=== PATIENT | male | born 1955 | race Caucasian/White ===

== ENCOUNTER 2017-02-03 16:32 | Emergency (ER) | payer BC, OTHER ==
[~2017-02-03] VITALS: Ht 188 cm; Wt 108.9 kg
[2017-02-03] MEDS ORDERED: FLUO20CA9 (16:45)
[2017-02-03] MEDS ORDERED: PANT40TA2 (16:45)
[2017-02-03] MEDS ORDERED: CIPR500T3 (16:45)
[2017-02-03] MEDS ORDERED: PROA1AER (16:45)
[2017-02-03] MEDS ORDERED: METR250T15 (16:45)
[2017-02-03] MEDS ORDERED: SIMV20TA2 (16:45)
[2017-02-03] MEDS ORDERED: MELO15TA4 (16:45)
[2017-02-03] MEDS ORDERED: NS 1,000 ML IV ONE (17:00)
[2017-02-03] MEDS ORDERED: KETOROLAC 30 MG/ML VIAL (J1885) IV ONE (17:00)
[2017-02-03 17:33] LABS: BASO % 0.5 % (0.0-1.0); EOS # 0.1 K/mm3 (0.0-0.50); EOS % 1.5 % (0.0-3.0); LARGE UNSTAINED CELL # 0.2 K/mm3 (0.0-0.4); LARGE UNSTAINED CELL % 2.7 % (0.0-4.0); LYMPH # 1.9 K/mm3 (1.5-4.5); LYMPH % 21.3 % (24.0-44.0); MEAN CORPUSCULAR HEMOGLOBIN 31.7 pg (27.0-33.0); MEAN CORPUSCULAR HGB CONC 33.6 g/dl (32.0-36.5); MEAN CORPUSCULAR VOLUME 94.4 fl (80.0-96.0); MONO # 0.5 K/mm3 (0.0-0.8); NEUTROPHILS # 5.9 K/mm3 (1.8-7.7); PLATELET COUNT, AUTOMATED 227 k/mm3 (150-450); WHITE BLOOD COUNT 8.7 K/mm3 (4.0-10.0)
[2017-02-03 17:53] LABS: ALBUMIN 3.7 GM/DL (3.2-5.2); ALBUMIN/GLOBULIN RATIO 1.12 (1.00-1.93); ALKALINE PHOSPHATASE 77 U/L (45-117); ALT/SGPT 40 U/L (12-78); ANION GAP 7 MEQ/L (8-16); AST/SGOT 24 U/L (15-37); BILIRUBIN,DIRECT < 0.1 MG/DL (0.0-0.2); BILIRUBIN,TOTAL 0.2 MG/DL (0.2-1.0); BLOOD UREA NITROGEN 16 MG/DL (7-18); CALCIUM LEVEL 8.4 MG/DL (8.8-10.2); CARBON DIOXIDE LEVEL 29 MEQ/L (21-32); CHLORIDE LEVEL 101 MEQ/L (98-107); CREATININE FOR GFR 1.14 MG/DL (0.70-1.30); GLOMERULAR FILTRATION RATE > 60.0 (>49); GLUCOSE, FASTING 93 MG/DL (80-110); POTASSIUM SERUM 4.5 MEQ/L (3.5-5.1); SODIUM LEVEL 137 MEQ/L (136-145)
[2017-02-03] MEDS ORDERED: ISOVUE-370 76% 100ML VIAL (Q9967) As Ordered ONE (18:10)
--- NOTE | 2017-02-03 18:40 | REPUSA ---
CT of the abdomen and pelvis with contrast Clinical statement: Pain. Technique: Multiple axial CT images were obtained from the base of the lungs through the floor of the pelvis utilizing 5 mm axial slices after administration of nonionic intravenous contrast. Coronal an d sagittal reconstructions were also obtained. No comparison is available. Findings: Chest: The visualized lung bases are clear. There is a moderate sized hiatal hernia. Abdomen: The liver, spleen, pancreas, kidneys, gallbladder, and adrenal glands are unremarkable. The aorta is within normal limits. There is no evidence of abdominal lymphadenopathy or ascites. Pelvis: There is bowel wall thickening and inflammation demonstrated around the sigmoid colon. A smal l pocket of extraluminal gas is noted, consistent with a small microperforation. There is no evidence of abscess. There is no evidence of bowel obstruction. The urinary bladder is within normal limits. The other pelvic structures appear grossly intact. There is no evidence of pelvic lymphadenopathy or ascites. Bones: There are no suspicious osseous abnormalities seen. Moderately severe multilevel degenerative disc disease is noted, most severe at L3/L4, L4/L5, and L5/S1. Significant disc osteophyte complexes appreciated at L5/S1. Impression: 1. Acute sigmoid diverticulitis. Extraluminal tiny pockets of gas are noted, consistent with a small microperforation. However, no free fluid or abscesses identified at this time. 2. Multilevel degenerative disc disease and spondylosis, most severe at L5/S1. 3. Moderate sized hiatal hernia.
[2017-02-03] MEDS ORDERED: metroNIDAZOLE (FLAGYL) 500 MG TAB PO ONE (18:45)
[2017-02-03] MEDS ORDERED: CIPR500T89 PO (18:57)
[2017-02-03] MEDS ORDERED: NORCOTAB PO (18:57)
[2017-02-03] MEDS ORDERED: FLAG500T PO (18:57)
[2017-02-03] MEDS ORDERED: CIPROFLOXACIN 400 MG in APPROPRIATE DILUENT 1 EA IV ONE (19:00)
[2017-02-03 19:56] VITALS: BP 132/78
[2017-02-03] MEDS ORDERED: NORCO, ANEXSIA 5/325MG TABLET (HYDROcodone/ACETAMINOPHEN) PO ONE (20:00)
== END 2017-02-03 20:11 | disposition home or self-care (01) ==
LOC: M ED 17:32
DX: K57.32 Diverticulitis of large intestine without perforation or abscess without bleeding (principal); K44.9 Diaphragmatic hernia without obstruction or gangrene; M43.06 Spondylolysis, lumbar region; M51.37 Other intervertebral disc degeneration, lumbosacral region; I25.10 Atherosclerotic heart disease of native coronary artery without angina pectoris; Z79.899 Other long term (current) drug therapy; Z88.1 Allergy status to other antibiotic agents
CPT/HCPCS: 36415; 74177; 80048; 80076; 81001; 83605; 83690; 85025; 96361; 96365; 96375; 99282; J0744; J1885; Q9967

== ENCOUNTER → 2017-02-18 | Outpatient (REF) | payer OTHER ==
[~2017-02-18] MED LIST: CIPR500T3; CIPR500T89 PO; FLAG500T PO; FLUO20CA9; MELO15TA4; METR250T15; NORCOTAB PO; PANT40TA2; PROA1AER; SIMV20TA2
[2017-02-18 13:04] LABS: ALBUMIN/GLOBULIN RATIO 1.03 (1.00-1.93); ALKALINE PHOSPHATASE 75 U/L (45-117); ALT/SGPT 39 U/L (12-78); ANION GAP 13 MEQ/L (8-16); AST/SGOT 21 U/L (15-37); BILIRUBIN,TOTAL 0.6 MG/DL (0.2-1.0); BLOOD UREA NITROGEN 22 MG/DL (7-18); CALCIUM LEVEL 9.6 MG/DL (8.8-10.2); CARBON DIOXIDE LEVEL 28 MEQ/L (21-32); CHLORIDE LEVEL 95 MEQ/L (98-107); CHOLESTEROL LEVEL 166 MG/DL (<200); CREATININE FOR GFR 1.23 MG/DL (0.70-1.30); GLOMERULAR FILTRATION RATE > 60.0 (>49); GLUCOSE, FASTING 99 MG/DL (80-110); POTASSIUM SERUM 4.6 MEQ/L (3.5-5.1); SODIUM LEVEL 136 MEQ/L (136-145); TOTAL PROTEIN 7.9 GM/DL (6.4-8.2); TRIGLYCERIDES LEVEL 85 MG/DL (<150)
== END ==
LOC: M LABDRWAD 12:25
PROVIDERS: ATTEND Emergency Medicine
DX: E78.2 Mixed hyperlipidemia (principal); I10 Essential (primary) hypertension; E55.9 Vitamin D deficiency, unspecified; N40.0 Benign prostatic hyperplasia without lower urinary tract symptoms; R73.01 Impaired fasting glucose
CPT/HCPCS: 80053; 80061; 82306; 83036; G0103

== ENCOUNTER 2017-03-16 08:11 | Inpatient (IN) | payer BC, OTHER ==
[2017-03-16] VITALS (7 sets, daily range): BP systolic 132–155; BP diastolic 87–97
[~2017-03-16] VITALS: Ht 188 cm; Wt 105.1 kg
[~2017-03-16 08:11] MED LIST changes: +ALKATAB PO; +CIPR500T3 PO; +FLUO20CA8 PO; +GLUC1CAP9 PO; +MELO15TA4 PO; +PANT40TA2 PO; +PROA1AER INH; +VITA500046 PO; +ZOCO20TA PO
[2017-03-16] MEDS ORDERED: ERTAPENEM SODIUM 1 GM in NS MINI-BAG PLUS 50 ML IV ONE (08:30)
[2017-03-16] MEDS ORDERED: LR 1,000 ML IV ONE (08:30)
[2017-03-16] MEDS ORDERED: BUPIVACAINE/EPIN 0.25% 30 ML VIAL As Ordered ONE (09:51)
[2017-03-16] MEDS ORDERED: PROPOFOL 200 MG/20 ML VIAL As Ordered ONE (09:54)
[2017-03-16] MEDS ORDERED: ONDANSETRON 4MG/2ML VIAL (J2405) As Ordered ONE ×2 (09:54→14:10)
[2017-03-16] MEDS ORDERED: ROCURONIUM BROMIDE 50 MG/5 ML VIAL As Ordered ONE (09:55)
[2017-03-16] MEDS ORDERED: LIDOCAINE 2% INJ 100 MG/5 ML SDV (FOR ANES.) As Ordered ONE (09:55)
[2017-03-16] MEDS ORDERED: dexameTHASONE 4 MG/ML 1ML VIAL (J1100) As Ordered ONE (09:55)
[2017-03-16] MEDS ORDERED: PHENYLephrine HCL 500 MCG/5 ML (100MCG/ML) SYRINGE (J2370) As Ordered ONE (10:16)
[2017-03-16] MEDS ORDERED: HYDROmorphone HCL 2 MG/ML 1ML VIAL (J1170) As Ordered ONE (11:35)
[2017-03-16] MEDS ORDERED: MIDAZOLAM INJ 2 MG/2 ML VIAL (J2250) As Ordered ONE (12:59)
[2017-03-16] MEDS ORDERED: fentaNYL 250 MCG/5 ML INJECTION (J3010) As Ordered ONE (12:59)
[2017-03-16] MEDS ORDERED: HYDROmorphone HCL 1 MG/ML SYRINGE (J1170) As Ordered ONE (14:14)
[2017-03-16] MEDS: HYDROmorphone HCL 1 MG/ML SYRINGE (J1170) IV PRN ×5 (14:17→14:46)
[2017-03-16] MEDS ORDERED: ACETAMINOPHEN TAB 650MG DOSE (2X325MG) PO PRN (14:30)
[2017-03-16] MEDS ORDERED: ALBUTEROL 90 MCG/ACT 8GM HFA INHALER INH PRN (14:30)
[2017-03-16] MEDS ORDERED: LR 1,000 ML IV SCH (14:30)
[2017-03-16] MEDS ORDERED: ONDANSETRON 4MG/2ML VIAL (J2405) IV PRN (14:30)
[2017-03-16] MEDS: fentaNYL 100 MCG/2 ML INJECTION (J3010) IV PRN ×4 (14:52→15:19)
[2017-03-16] MEDS: KETOROLAC 30 MG/ML VIAL (J1885) IV PRN ×2 (15:35→21:59)
[2017-03-16] MEDS: SIMVASTATIN 20 MG TAB PO SCH (17:45)
[2017-03-16] MEDS: FLUoxetine 20 MG CAP PO SCH (17:45)
[2017-03-16] MEDS: LR 1,000 ML IV SCH ×2 (17:45→21:26)
[2017-03-16] MEDS: MORPHINE 2 MG/ML 1ML SYRINGE IV PRN ×2 (17:47→19:55)
[2017-03-16] MEDS: HEPARIN SOD (PORCINE) 5000 UNITS/ML VIAL SC SCH (21:27)
[2017-03-16] MEDS: PANTOPRAZOLE 40MG INJ (PROTONIX) (C9113) IV SCH (21:27)
[2017-03-16] MEDS: SENOKOT S TAB PO SCH (21:28)
[2017-03-16] MEDS: NORCO, ANEXSIA 5/325MG TABLET (HYDROcodone/ACETAMINOPHEN) PO PRN (21:28)
[2017-03-17 02:00] VITALS: BP 136/88
[2017-03-17] MEDS: KETOROLAC 30 MG/ML VIAL (J1885) IV PRN ×3 (05:14→18:08)
[2017-03-17] MEDS: HEPARIN SOD (PORCINE) 5000 UNITS/ML VIAL SC SCH ×3 (05:14→21:03)
[2017-03-17] MEDS: LR 1,000 ML IV SCH ×3 (05:14→23:27)
[2017-03-17 06:00] VITALS: BP 122/82
--- NOTE | 2017-03-17 06:12 | RO ---
DATE OF PROCEDURE: 03/16/2017 PREOPERATIVE DIAGNOSIS: Sigmoid diverticulitis. POSTOPERATIVE DIAGNOSIS: Sigmoid diverticulitis. PROCEDURE: Laparoscopic sigmoidectomy. SURGEON: Dr. Brooks Dove. REPORTING COORDINATOR: Dr. Steward. ESTIMATED BLOOD LOSS: 150. ANESTHESIA: General. COMPLICATIONS: None. INDICATIONS FOR PROCEDURE: The patient is a 61-year-old male who has had four episodes of diverticulitis over the past 6 months. Last episode having microperforation but previous episodes were not confirmed with CT scan, but he has had multiple issues with urinary retention during each of these episodes. He was given the option for elective surgery and he agreed. Risks and benefits of procedure not limited but including bleeding, infection, hernia formation, damage to surrounding structures, anastomotic leak, and need for further surgery were discussed in detail with the patient. Informed consent was obtained and procedure was planned. PROCEDURE: The patient was brought back to operating room seven after sufficient sedation. NG tube was placed. A Ortiz catheter was placed. He was placed in supine position with legs up in stirrups. Next the perineal area was prepped and draped with Betadine and the abdomen was prepped with chlorhexidine. Time-out was then done to confirm proper patient and proper procedure. Following that a 5 mm incision made in the left upper quadrant. Veress needle was inserted and the abdomen was insufflated with 15 mmHg. Next a Veress needle was removed. 5 mm OptiView port was used to gain access to the abdomen. Once the abdomen was entered, the sigmoid colon was adhered to the anterior abdominal wall just inferior to the umbilicus extending down inferiorly adhered to the bladder and then going down into the pelvis. It was also adhered in the left lower quadrant against the lateral pelvic wall and this portion was just overlying the ureter which was visible on entry. Next, another 5 mm port was placed in the midline. Two more 5 mm ports, one in the left lateral wall and one in the right lower quadrant. The sigmoid was elevated up in the air. Mesocolon was taken down using the Enseal then the adhesions to the abdominal wall were carefully teased away and carefully taken down without getting in the entry into the bladder. There was a large abscess cavity that was identified in this area that was all aspirated out. The adhesions were then taken down along the left lower quadrant. Once the sigmoid was mobilized, then we were able to continue going through the sigmoid mesentery until we could reach completely across into the left lower side. Once this was completed, the rest of the mesentery was taken down up towards the rectosigmoid junction. Then the [place] stapler with a green load was used with three separate sachin to transect the distal colon at the rectosigmoid junction. The rest of the mesentery was taken down using the Enseal proximally until the mid descending colon was reached. The lateral attachments at the peritoneal reflection were all taken down with the Enseal as well. Once we had complete mobilization, the midline port site was extended about 6 cm just around the umbilicus. Incision was carried down to the fascia using electrocautery. The abdomen was entered. The colon was brought out through the abdominal wall incision. Once it was brought out, there was a soft area proximal to the wall of the diverticuli where the bowel seemed very strong and healthy. The bowel was transected at this point and the specimen was sent off. #2-0 Prolene suture was then used to place a pursestring and a 29 EEA stapler was placed inside the end and tied in place. Once this was completed, a little bit of cautery and scissors were used to dissect around the anvil to make sure that the staple line was going to be free from any surrounding mesenteric fat. Once this was completed, this was placed back inside the abdomen. Running PDS Endoloop was used to reapproximate the fascia. The abdomen was then reinsufflated. The EEA 29 stapler was then passed in through the rectum. The anvil was brought out connected intraperitoneally using a laparoscope and the stapler was fired. Upon firing, there were two donuts that were intact. No signs of any injury or holes in the staple line from that point. The rectum was then insufflated with air and saline was placed inside the pelvis. There were no bubbles that were identified. The saline was then aspirated out. A #19-Brune[place] Anthony drain was placed overlying the anastomosis and in the pelvis. The anastomosis was reinforced with a layer of Tisseel. The 12 mm port in the right lower quadrant that was used to staple the distal colon was closed with #0 Vicryl suture and a Kaleb-Patiño needle. Abdomen was then desufflated. The drain was tied in place with a #2-0 silk suture. The rest of the port sites and the midline incision were closed with sachin. The abdomen was cleaned and dried, 4x4 and tape were applied thus ending procedure.
[2017-03-17 06:22] LABS: MEAN CORPUSCULAR HEMOGLOBIN 31.7 pg (27.0-33.0); MEAN CORPUSCULAR HGB CONC 34.2 g/dl (32.0-36.5); MEAN CORPUSCULAR VOLUME 92.6 fl (80.0-96.0); RED CELL DISTRIBUTION WIDTH 12.3 % (11.5-14.5); WHITE BLOOD COUNT 9.9 K/mm3 (4.0-10.0)
[2017-03-17 06:47] LABS: ALBUMIN 2.7 GM/DL (3.2-5.2); ALBUMIN/GLOBULIN RATIO 0.73 (1.00-1.93); ALKALINE PHOSPHATASE 56 U/L (45-117); ALT/SGPT 21 U/L (12-78); ANION GAP 8 MEQ/L (8-16); AST/SGOT 12 U/L (15-37); BILIRUBIN,TOTAL 0.8 MG/DL (0.2-1.0); BLOOD UREA NITROGEN 15 MG/DL (7-18); CALCIUM LEVEL 8.7 MG/DL (8.8-10.2); CARBON DIOXIDE LEVEL 29 MEQ/L (21-32); CHLORIDE LEVEL 99 MEQ/L (98-107); CREATININE FOR GFR 1.02 MG/DL (0.70-1.30); GLOMERULAR FILTRATION RATE > 60.0 (>49); GLUCOSE, FASTING 104 MG/DL (80-110); MAGNESIUM LEVEL 1.8 MG/DL (1.8-2.4); POTASSIUM SERUM 4.5 MEQ/L (3.5-5.1); SODIUM LEVEL 136 MEQ/L (136-145); TOTAL PROTEIN 6.4 GM/DL (6.4-8.2)
[2017-03-17] MEDS: SIMVASTATIN 20 MG TAB PO SCH (08:07)
[2017-03-17] MEDS: PANTOPRAZOLE 40MG INJ (PROTONIX) (C9113) IV SCH ×2 (08:07→21:04)
[2017-03-17] MEDS: SENOKOT S TAB PO SCH ×2 (08:07→21:03)
[2017-03-17] MEDS: FLUoxetine 20 MG CAP PO SCH (08:08)
[2017-03-17] MEDS: NORCO, ANEXSIA 5/325MG TABLET (HYDROcodone/ACETAMINOPHEN) PO PRN ×3 (08:08→21:04)
[2017-03-17 10:00] VITALS: BP 112/77
[2017-03-17] MEDS: ERTAPENEM SODIUM 1 GM in NS MINI-BAG PLUS 50 ML IV SCH (10:15)
[2017-03-17 14:00] VITALS: BP 129/78
[2017-03-17 18:00] VITALS: BP 121/76
[2017-03-17 22:00] VITALS: BP 128/76
[2017-03-18] MEDS: KETOROLAC 30 MG/ML VIAL (J1885) IV PRN ×4 (01:08→23:36)
[2017-03-18] MEDS: HEPARIN SOD (PORCINE) 5000 UNITS/ML VIAL SC SCH ×3 (05:18→20:17)
[2017-03-18] MEDS: NORCO, ANEXSIA 5/325MG TABLET (HYDROcodone/ACETAMINOPHEN) PO PRN ×3 (05:18→20:16)
[2017-03-18 06:00] VITALS: BP 140/81
[2017-03-18] MEDS: LR 1,000 ML IV SCH (06:17)
[2017-03-18 06:39] LABS: MEAN CORPUSCULAR HEMOGLOBIN 31.9 pg (27.0-33.0); MEAN CORPUSCULAR HGB CONC 34.2 g/dl (32.0-36.5); MEAN CORPUSCULAR VOLUME 93.4 fl (80.0-96.0); RED CELL DISTRIBUTION WIDTH 12.4 % (11.5-14.5)
[2017-03-18 06:56] LABS: ALBUMIN 2.6 GM/DL (3.2-5.2); ALBUMIN/GLOBULIN RATIO 0.76 (1.00-1.93); ALKALINE PHOSPHATASE 49 U/L (45-117); ALT/SGPT 15 U/L (12-78); ANION GAP 5 MEQ/L (8-16); AST/SGOT 12 U/L (15-37); BILIRUBIN,TOTAL 0.6 MG/DL (0.2-1.0); BLOOD UREA NITROGEN 10 MG/DL (7-18); CALCIUM LEVEL 8.1 MG/DL (8.8-10.2); CARBON DIOXIDE LEVEL 28 MEQ/L (21-32); CHLORIDE LEVEL 100 MEQ/L (98-107); CREATININE FOR GFR 0.91 MG/DL (0.70-1.30); GLOMERULAR FILTRATION RATE > 60.0 (>49); GLUCOSE, FASTING 95 MG/DL (80-110); MAGNESIUM LEVEL 1.5 MG/DL (1.8-2.4); POTASSIUM SERUM 3.8 MEQ/L (3.5-5.1); SODIUM LEVEL 133 MEQ/L (136-145)
[2017-03-18] MEDS: DICYCLOMINE 10 MG CAP PO SCH ×3 (08:20→20:17)
[2017-03-18] MEDS: MAG SULF 1GM/100ML (MAG RUN) 1 GM in APPROPRIATE DILUENT 1 EA IV SCH ×3 (08:20→11:31)
[2017-03-18] MEDS: PANTOPRAZOLE 40MG INJ (PROTONIX) (C9113) IV SCH ×2 (08:20→20:17)
[2017-03-18] MEDS: FLUoxetine 20 MG CAP PO SCH (08:20)
[2017-03-18] MEDS: SENOKOT S TAB PO SCH ×2 (08:20→20:16)
[2017-03-18] MEDS: SIMVASTATIN 20 MG TAB PO SCH (08:20)
[2017-03-18] MEDS: ERTAPENEM SODIUM 1 GM in NS MINI-BAG PLUS 50 ML IV SCH (10:49)
[2017-03-18 14:00] VITALS: BP 133/78
[2017-03-18 21:05] VITALS: BP 141/84
[2017-03-19] MEDS: HEPARIN SOD (PORCINE) 5000 UNITS/ML VIAL SC SCH ×3 (04:58→20:57)
[2017-03-19] MEDS: NORCO, ANEXSIA 5/325MG TABLET (HYDROcodone/ACETAMINOPHEN) PO PRN ×2 (04:58→13:59)
[2017-03-19 05:05] VITALS: BP 155/86
[2017-03-19 06:43] LABS: MEAN CORPUSCULAR HEMOGLOBIN 31.5 pg (27.0-33.0); MEAN CORPUSCULAR HGB CONC 34.4 g/dl (32.0-36.5); MEAN CORPUSCULAR VOLUME 91.6 fl (80.0-96.0); RED CELL DISTRIBUTION WIDTH 11.9 % (11.5-14.5); WHITE BLOOD COUNT 7.8 K/mm3 (4.0-10.0)
[2017-03-19 07:24] LABS: ALBUMIN 2.4 GM/DL (3.2-5.2); ALBUMIN/GLOBULIN RATIO 0.67 (1.00-1.93); ALKALINE PHOSPHATASE 53 U/L (45-117); ALT/SGPT 15 U/L (12-78); ANION GAP 6 MEQ/L (8-16); AST/SGOT 12 U/L (15-37); BILIRUBIN,TOTAL 0.5 MG/DL (0.2-1.0); BLOOD UREA NITROGEN 6 MG/DL (7-18); CALCIUM LEVEL 8.4 MG/DL (8.8-10.2); CARBON DIOXIDE LEVEL 29 MEQ/L (21-32); CHLORIDE LEVEL 101 MEQ/L (98-107); GLOMERULAR FILTRATION RATE > 60.0 (>49); GLUCOSE, FASTING 87 MG/DL (80-110); MAGNESIUM LEVEL 1.6 MG/DL (1.8-2.4); POTASSIUM SERUM 3.5 MEQ/L (3.5-5.1); SODIUM LEVEL 136 MEQ/L (136-145)
[2017-03-19] MEDS: MAG SULF 1GM/100ML (MAG RUN) 1 GM in APPROPRIATE DILUENT 1 EA IV SCH ×3 (07:52→10:15)
[2017-03-19] MEDS: PANTOPRAZOLE 40MG INJ (PROTONIX) (C9113) IV SCH ×2 (08:51→20:57)
[2017-03-19] MEDS: SIMVASTATIN 20 MG TAB PO SCH (08:52)
[2017-03-19] MEDS: DICYCLOMINE 10 MG CAP PO SCH ×3 (08:52→20:57)
[2017-03-19] MEDS: SENOKOT S TAB PO SCH ×2 (08:52→20:57)
[2017-03-19] MEDS: POTASSIUM CHLORIDE 10 MEQ SR TABLET PO SCH ×2 (08:52→20:57)
[2017-03-19] MEDS: FLUoxetine 20 MG CAP PO SCH (08:52)
[2017-03-19] MEDS: KETOROLAC 30 MG/ML VIAL (J1885) IV PRN ×2 (08:58→18:51)
[2017-03-19 14:00] VITALS: BP 140/83
[2017-03-19 21:05] VITALS: BP 150/88
[2017-03-20] MEDS: KETOROLAC 30 MG/ML VIAL (J1885) IV PRN (01:41)
[2017-03-20] MEDS: HEPARIN SOD (PORCINE) 5000 UNITS/ML VIAL SC SCH ×3 (05:29→22:24)
[2017-03-20 05:35] VITALS: BP 154/94
[2017-03-20 06:47] LABS: ALBUMIN 2.6 GM/DL (3.2-5.2); ALBUMIN/GLOBULIN RATIO 0.67 (1.00-1.93); ALKALINE PHOSPHATASE 56 U/L (45-117); ALT/SGPT 15 U/L (12-78); ANION GAP 5 MEQ/L (8-16); AST/SGOT 14 U/L (15-37); BILIRUBIN,TOTAL 0.4 MG/DL (0.2-1.0); BLOOD UREA NITROGEN 6 MG/DL (7-18); CALCIUM LEVEL 8.4 MG/DL (8.8-10.2); CARBON DIOXIDE LEVEL 29 MEQ/L (21-32); CHLORIDE LEVEL 100 MEQ/L (98-107); CREATININE FOR GFR 0.86 MG/DL (0.70-1.30); GLOMERULAR FILTRATION RATE > 60.0 (>49); GLUCOSE, FASTING 90 MG/DL (80-110); MAGNESIUM LEVEL 2.1 MG/DL (1.8-2.4); SODIUM LEVEL 134 MEQ/L (136-145); TOTAL PROTEIN 6.5 GM/DL (6.4-8.2)
[2017-03-20 06:56] LABS: MEAN CORPUSCULAR HGB CONC 34.6 g/dl (32.0-36.5); MEAN CORPUSCULAR VOLUME 92.5 fl (80.0-96.0); RED CELL DISTRIBUTION WIDTH 11.9 % (11.5-14.5); WHITE BLOOD COUNT 7.8 K/mm3 (4.0-10.0)
[2017-03-20] MEDS ORDERED: NORCOTAB PO (08:04)
[2017-03-20] MEDS ORDERED: SENN1TAB2 PO (08:04)
[2017-03-20] MEDS: SIMVASTATIN 20 MG TAB PO SCH (09:37)
[2017-03-20] MEDS: SENOKOT S TAB PO SCH ×2 (09:37→22:22)
[2017-03-20] MEDS: HYDROCORTISONE 1% CREAM 30 GM TOP PRN ×3 (09:37→22:25)
[2017-03-20] MEDS: FLUoxetine 20 MG CAP PO SCH (09:37)
[2017-03-20] MEDS: POTASSIUM CHLORIDE 10 MEQ SR TABLET PO SCH ×2 (09:37→22:23)
[2017-03-20] MEDS: PANTOPRAZOLE 40MG INJ (PROTONIX) (C9113) IV SCH (09:38)
[2017-03-20] MEDS: DICYCLOMINE 10 MG CAP PO SCH ×3 (09:38→22:23)
[2017-03-20] MEDS: NORCO, ANEXSIA 5/325MG TABLET (HYDROcodone/ACETAMINOPHEN) PO PRN ×3 (09:38→22:24)
[2017-03-20 14:00] VITALS: BP 142/70
[2017-03-20] MEDS: PANTOPRAZOLE 40MG TAB (PROTONIX) PO SCH (21:00)
[2017-03-20 21:40] VITALS: BP 158/77
[2017-03-21] MEDS: NORCO, ANEXSIA 5/325MG TABLET (HYDROcodone/ACETAMINOPHEN) PO PRN (05:18)
[2017-03-21] MEDS: HEPARIN SOD (PORCINE) 5000 UNITS/ML VIAL SC SCH (05:18)
[2017-03-21 05:32] VITALS: BP 142/89
[2017-03-21 05:49] LABS: MEAN CORPUSCULAR HEMOGLOBIN 31.7 pg (27.0-33.0); MEAN CORPUSCULAR HGB CONC 34.2 g/dl (32.0-36.5); MEAN CORPUSCULAR VOLUME 92.7 fl (80.0-96.0); RED CELL DISTRIBUTION WIDTH 12.3 % (11.5-14.5); WHITE BLOOD COUNT 7.9 K/mm3 (4.0-10.0)
[2017-03-21 06:03] LABS: ALBUMIN 2.6 GM/DL (3.2-5.2); ALBUMIN/GLOBULIN RATIO 0.67 (1.00-1.93); ALKALINE PHOSPHATASE 73 U/L (45-117); ALT/SGPT 40 U/L (12-78); ANION GAP 6 MEQ/L (8-16); AST/SGOT 37 U/L (15-37); BILIRUBIN,TOTAL 0.3 MG/DL (0.2-1.0); BLOOD UREA NITROGEN 6 MG/DL (7-18); CALCIUM LEVEL 8.7 MG/DL (8.8-10.2); CARBON DIOXIDE LEVEL 28 MEQ/L (21-32); CHLORIDE LEVEL 101 MEQ/L (98-107); CREATININE FOR GFR 0.92 MG/DL (0.70-1.30); GLOMERULAR FILTRATION RATE > 60.0 (>49); GLUCOSE, FASTING 91 MG/DL (80-110); MAGNESIUM LEVEL 1.8 MG/DL (1.8-2.4); POTASSIUM SERUM 4.3 MEQ/L (3.5-5.1); SODIUM LEVEL 135 MEQ/L (136-145); TOTAL PROTEIN 6.5 GM/DL (6.4-8.2)
--- NOTE | 2017-03-21 09:42 | IPNPDOC ---
Subjective General Date/Time Seen The patient was seen on 03/21/17 at 09:40. Subject Chief Complaint/History The patient is a 61-year-old male admitted with a reason for visit of Diverticulitis. POD5 Reversal of colostomy Reports doing well. On regular diet, fair appetite, no nausea. Having multiple bms, soft. Current Medications Current Medications Current Medications Acetaminophen (Tylenol Tab) 650 mg Q4HP PRN PO MILD PAIN or TEMP > 101; Start 03/16/17 at 14:30; Stop 04/15/17 at 14:29 Acetaminophen/ Hydrocodone Bitart (Benedict, Anexsia 5/325) 2 tab Q6HP PRN PO SEVERE PAIN (PS 8-10) Last administered on 03/21/17 05:18; Start 03/16/17 at 14 :30; Stop 03/23/17 at 14:29 Albuterol Sulfate (Proventil, Ventolin Hfa) 2 puff Q4H PRN INH SOB/WHEEZING; Start 03/16/17 at 14:30; Stop 04/15/17 at 14:29 Dicyclomine HCl (Bentyl) 10 mg TID PO Last administered on 03/20/17 22:23; Start 03/18/17 at 09:00; Stop 04/17/17 at 08:59 Ertapenem 1 gm/ Sodium Chloride 50 ml @ 100 mls/hr Q24H IV Last administered on 03/18/17 10:49; Start 03/17/17 at 10:00; Stop 03/19/17 at 07:31; Status DC Fentanyl Citrate (Sublimaze) 25 mcg Q5MP PRN IV MODERATE PAIN (PS 4-7) Last administered on 03/16/17 15:19; Start 03/16/17 at 14:30; Stop 03/16/17 at 15:30 ; Status DC Fluoxetine HCl (PROzac) 20 mg DAILY PO Last administered on 03/20/17 09:37; Start 03/16/17 at 09:00; Stop 04/15/17 at 08:59 Heparin Sodium (Porcine) (Heparin) 5,000 units Q8H SC Last administered on 03/21 05:18; Start 03/16/17 at 22:00; Stop 03/21/17 at 21:59 Hydrocortisone (Hydrocortisone 1% Cream) 1 dose Q4HP PRN TOP ITCHING Last administered on 03/20/17 22:25; Start 03/20/17 at 08:00; Stop 04/19/17 at 07:59 Hydromorphone HCl (Dilaudid) 0.2 mg Q5MP PRN IV MODERATE/SEVERE PAIN (PS 7-10) Last administered on 03/16/17 14:46; Start 03/16/17 at 14:30; Stop 03/16/17 at 15:30; Status DC Ketorolac Tromethamine (ToRADol) 30 mg Q6HP PRN IV MILD/MODERATE PAIN (PS 1-7) Last administered on 03/20/17 01:41; Start 03/16/17 at 14:30; Stop 03/20/17 at 07:59; Status DC Lactated Ringer's 1,000 ml @ 100 mls/hr Q10H IV ; Start 03/16/17 at 14:30; Stop 03/16/17 at 15:30; Status DC Lactated Ringer's 1,000 ml @ 125 mls/hr Q8H IV Last administered on 03/18/17 06:17; Start 03/16/17 at 08:30; Stop 03/18/17 at 07:24; Status DC Magnesium Sulfate/ Dextrose 1 gm/IV Miscellaneous Supplies 100 ml @ 100 mls/hr Q1H IV Last administered on 03/18/17 11:31; Start 03/18/17 at 08:00; Stop at 10:59; Status DC Magnesium Sulfate/ Dextrose 1 gm/IV Miscellaneous Supplies 100 ml @ 100 mls/hr Q1H IV Last administered on 03/19/17 10:15; Start 03/19/17 at 07:30; Stop at 10:21; Status DC Morphine Sulfate (Morphine Sulfate Inj) 2 mg Q2HP PRN IV SEVERE PAIN (PS 8-10) Last administered on 03/16/17 19:55; Start 03/16/17 at 14:30; Stop 03/19/17 at 07:29; Status DC Ondansetron HCl (ZOFRAN INJection) 4 mg Q4HP PRN IV NAUSEA OR VOMITING Last administered on 03/16/17 14:11; Start 03/16/17 at 14:30; Stop 03/16/17 at 15:30 ; Status DC Pantoprazole Sodium (Protonix) 40 mg BID IV Last administered on 03/20/17 09: 38; Start 03/16/17 at 21:00; Stop 03/20/17 at 10:27; Status DC Pantoprazole Sodium (Protonix) 40 mg BID PO Last administered on 03/20/17 21: 00; Start 03/20/17 at 21:00; Stop 04/19/17 at 20:59 Potassium Chloride (Micro-K Extencaps) 40 meq BID PO Last administered on 22:23; Start 03/19/17 at 09:00; Stop 04/18/17 at 08:59 Senna/Docusate Sodium (Senokot S) 1 tab BID PO Last administered on 03/20/17 22:22; Start 03/16/17 at 21:00; Stop 04/15/17 at 20:59 Simvastatin (Zocor) 20 mg DAILY PO Last administered on 03/20/17 09:37; Start 03/16/17 at 09:00; Stop 04/15/17 at 08:59 Allergies Coded Allergies: Amoxicillin (Verified Allergy, Unknown, 03/16/17) Latex (Verified Adverse Reaction, Intermediate, rash, 03/16/17) Lactose Intolerance (GI) (Verified Adverse Reaction, Unknown, diarrhea, nausea, 03/16/17) Objective Physical Examination Examination GENERAL APPEARANCE:Patient seen, laying in bed, awake, alert, and oriented. Comfortable, in no acute distress. SKIN: Warm and moist. HEENT: Normocephalic, atraumatic. [place] palpebral conjunctiva, anicteric sclerae. Lips and mucosa appear moist. NECK: Supple, no thyromegaly. No obvious jugular venous distention. LUNGS: Clear to auscultation bilaterally. No wheezing appreciated. HEART: No chest wall abnormalities. Regular rate and rhythm with no murmurs appreciated. ABDOMEN: Abdomen is mild round, soft, nondistended. incisions sites, sachin intact, clean, dry. nontender on palpation. . EXTREMITIES: Extremities have no deformities. No edema identified. Vital Signs Vital Signs Date Time Temp Pulse Resp B/P (MAP) Pulse Ox O2 Delivery O2 Flow Rate FiO2 03/21/17 05:48 16 03/21/17 05:32 97.3 64 142/89 (106) 97 Room Air 03/17/17 10:00 2.0 I&Os I&O- Last 24 Hours up to 6 AM 03/21/17 06:00 Intake Total 1900 ml Output Total 1550 ml Balance 350 ml Laboratory Data Labs 24H Laboratory Tests 2 03/21/17 05:19: Anion Gap 6L, Glomerular Filtration Rate > 60.0, Blood Urea Nitrogen 6L, Creatinine 0.92, Sodium Level 135L, Potassium Level 4.3, Chloride Level 101, Carbon Dioxide Level 28, Calcium Level 8.7L, Aspartate Amino Transf (AST/SGOT) 37, Alanine Aminotransferase (ALT/SGPT) 40, Alkaline Phosphatase 73, Total Bilirubin 0.3, Total Protein 6.5, Albumin 2.6L, Magnesium Level 1.8, Albumin/ Globulin Ratio 0.67L CBC/BMP Laboratory Tests 03/21/17 05:19 Red Blood Count 3.55 L, Mean Corpuscular Volume 92.7, Mean Corpuscular Hemoglobin 31.7, Mean Corpuscular Hemoglobin Concent 34.2, Red Cell Distribution Width 12.3, Calcium Level 8.7 L, Aspartate Amino Transf (AST/SGOT) 37, Alanine Aminotransferase (ALT/SGPT) 40, Alkaline Phosphatase 73, Total Bilirubin 0.3, Total Protein 6.5, Albumin 2.6 L Impression POD 5 Reversal of Colostomy doing well Stable for discharge. Follow up with Dr. Dove Plan / VTE VTE Prophylaxis Ordered?: Yes Plan / Urinary Catheter Reason for insertion/continuin: Perioperative ZACH NASCIMENTO MD Mar 21, 2017 09:42
[2017-03-21] MEDS: HYDROCORTISONE 1% CREAM 30 GM TOP PRN (09:57)
[2017-03-21] MEDS: SENOKOT S TAB PO SCH (09:58)
[2017-03-21] MEDS: DICYCLOMINE 10 MG CAP PO SCH (09:58)
[2017-03-21] MEDS: POTASSIUM CHLORIDE 10 MEQ SR TABLET PO SCH (09:58)
[2017-03-21] MEDS: PANTOPRAZOLE 40MG TAB (PROTONIX) PO SCH (09:58)
[2017-03-21] MEDS: FLUoxetine 20 MG CAP PO SCH (09:58)
[2017-03-21] MEDS: SIMVASTATIN 20 MG TAB PO SCH (09:59)
== END 2017-03-21 12:07 | disposition home or self-care (01) | DRG 221 ==
LOC: M OR 08:11 → M MSPAV 16:00
PROVIDERS: ADMIT Surgery; ATTEND Surgery
PROC: 0DBN4ZZ Excision of Sigmoid Colon, Percutaneous Endoscopic Approach (ICD-10-PCS; principal; 2017-03-16 10:00)
DX: K57.32 Diverticulitis of large intestine without perforation or abscess without bleeding (principal); H90.3 Sensorineural hearing loss, bilateral; E78.00 Pure hypercholesterolemia, unspecified; K21.9 Gastro-esophageal reflux disease without esophagitis; Z79.899 Other long term (current) drug therapy; Z88.0 Allergy status to penicillin

== ENCOUNTER 2017-03-23 07:24 | Inpatient (IN) | payer BC, OTHER ==
[~2017-03-23] VITALS: Ht 190.5 cm; Wt 103.5 kg
[~2017-03-23 07:24] MED LIST changes: +SENN1TAB2 PO
[2017-03-23] MEDS ORDERED: NS 1,000 ML IV ONE (08:30)
[2017-03-23] MEDS ORDERED: ONDANSETRON 4MG/2ML VIAL (J2405) IV ONE (08:30)
[2017-03-23] MEDS ORDERED: KETOROLAC 30 MG/ML VIAL (J1885) IV ONE (08:30)
[2017-03-23 08:56] LABS: BASO % 0.3 % (0.0-1.0); EOS # 0.1 K/mm3 (0.0-0.50); EOS % 0.9 % (0.0-3.0); LARGE UNSTAINED CELL # 0.1 K/mm3 (0.0-0.4); LARGE UNSTAINED CELL % 0.8 % (0.0-4.0); LYMPH # 0.9 K/mm3 (1.5-4.5); LYMPH % 7.1 % (24.0-44.0); MEAN CORPUSCULAR HEMOGLOBIN 31.3 pg (27.0-33.0); MEAN CORPUSCULAR HGB CONC 34.4 g/dl (32.0-36.5); MEAN CORPUSCULAR VOLUME 91.1 fl (80.0-96.0); MONO # 0.6 K/mm3 (0.0-0.8); MONO % 5.4 % (0.0-5.0); NEUTROPHILS # 9.9 K/mm3 (1.8-7.7); NEUTROPHILS % 85.6 % (36.0-66.0); PLATELET COUNT, AUTOMATED 425 k/mm3 (150-450); RED CELL DISTRIBUTION WIDTH 12.3 % (11.5-14.5); WHITE BLOOD COUNT 11.5 K/mm3 (4.0-10.0)
[2017-03-23] MEDS ORDERED: PANTOPRAZOLE 40MG INJ (PROTONIX) (C9113) IV SCH (09:00)
[2017-03-23] MEDS ORDERED: PANTOPRAZOLE 40MG TAB (PROTONIX) PO SCH (09:00)
[2017-03-23 09:23] LABS: ALBUMIN 3.4 GM/DL (3.2-5.2); ALBUMIN/GLOBULIN RATIO 0.71 (1.00-1.93); ALKALINE PHOSPHATASE 93 U/L (45-117); ALT/SGPT 71 U/L (12-78); ANION GAP 11 MEQ/L (8-16); AST/SGOT 48 U/L (15-37); BILIRUBIN,DIRECT 0.1 MG/DL (0.0-0.2); BILIRUBIN,TOTAL 0.4 MG/DL (0.2-1.0); BLOOD UREA NITROGEN 9 MG/DL (7-18); CALCIUM LEVEL 9.6 MG/DL (8.8-10.2); CARBON DIOXIDE LEVEL 24 MEQ/L (21-32); CHLORIDE LEVEL 97 MEQ/L (98-107); CREATININE FOR GFR 1.01 MG/DL (0.70-1.30); GLOMERULAR FILTRATION RATE > 60.0 (>49); GLUCOSE, FASTING 123 MG/DL (80-110); POTASSIUM SERUM 4.3 MEQ/L (3.5-5.1); SODIUM LEVEL 132 MEQ/L (136-145); TOTAL PROTEIN 8.2 GM/DL (6.4-8.2)
--- NOTE | 2017-03-23 09:42 | REP ---
ABDOMINAL SERIES: Supine and erect views of the abdomen and pelvis demonstrate multiple moderately dilated small bowel loops in the upper abdomen. There is no free air. Metallic skin sachin are seen overlying the midline of the pelvis and there are a few underlying surgical clips in the pelvis. There are degenerative changes of the spine. An accompanying view of the chest demonstrates no acute infiltrate. Heart does not appear to be significantly enlarged. IMPRESSION: Multiple moderately dilated small bowel loops with air fluid levels on the upright view compatible with small bowel obstruction versus ileus. Signed by Brooks Smith MD 03/23/2017 08:16 P
[2017-03-23] MEDS ORDERED: ALKATAB PO (10:22)
[2017-03-23] MEDS ORDERED: GLUC1CAP9 PO (10:22)
[2017-03-23] MEDS ORDERED: PROZ20CA11 PO (10:22)
[2017-03-23] MEDS ORDERED: PANT40TA2 PO (10:22)
[2017-03-23] MEDS ORDERED: SIMV20TA2 PO (10:22)
[2017-03-23] MEDS ORDERED: HYDR-3713 PO (10:22)
[2017-03-23] MEDS ORDERED: SENN8.6T7 PO (10:22)
[2017-03-23] MEDS ORDERED: ALBU17IN INH (10:22)
[2017-03-23] MEDS ORDERED: VITA100066 PO (10:22)
[2017-03-23] MEDS ORDERED: ISOVUE-370 76% 100ML VIAL (Q9967) As Ordered ONE (10:32)
[2017-03-23] MEDS ORDERED: ACETAMINOPHEN TAB 650MG DOSE (2X325MG) PO PRN (10:45)
[2017-03-23] MEDS ORDERED: MOM 30ML SUSPENSION UDC PO PRN (10:45)
[2017-03-23] MEDS ORDERED: NORCO, ANEXSIA 5/325MG TABLET (HYDROcodone/ACETAMINOPHEN) PO PRN (10:45)
[2017-03-23] MEDS ORDERED: ERTAPENEM SODIUM 1 GM in NS MINI-BAG PLUS 50 ML IV SCH (11:00)
[2017-03-23] MEDS ORDERED: ONDANSETRON 4MG/2ML VIAL (J2405) IV PRN (11:00)
[2017-03-23] MEDS ORDERED: DESITIN TOP (11:43)
[2017-03-23] MEDS ORDERED: HYDR1CR TOP (11:43)
--- NOTE | 2017-03-23 12:07 | REP ---
PORTABLE CHEST: AP portable view of the chest is performed and compared to a prior exam of the same day. There has been placement of a nasogastric tube. The distal end is not well visualized. It is not definitely seen below the diaphragms and may be located in the distal esophagus. The remainder of the chest appears unchanged. Signed by Brooks Smith MD 03/23/2017 08:18 P
[2017-03-23 12:10] VITALS: BP 139/89
--- NOTE | 2017-03-23 12:24 | REP ---
CT ABDOMEN AND PELVIS WITH IV CONTRAST: TECHNIQUE: Axial contrast enhanced images from the lung bases to the pubic symphysis using 100 mL Isovue 370 intravenous contrast material with multiplanar reformations. Visualized lung bases demonstrate mild fibroatelectatic change. There is a moderate-side hiatal hernia. Liver, spleen, adrenals, pancreas, and kidneys appear unremarkable. There has been recent surgery in the lower abdomen with metallic clips in the skin, and there are a few metallic clips in the mesentery of the left lower quadrant. There is moderately dilated small bowel proximally. The dilated small bowel becomes more narrow and essentially normal in caliber at the site of the mesenteric clips in the left lower quadrant. The findings are suggestive of partial small bowel obstruction. Streaky densities surrounding the sigmoid colon are most consistent with postsurgical edema. No abscess is seen. Urinary bladder is grossly unremarkable. I see no adenopathy or free air. There is no abdominal aortic aneurysm. There are degenerative changes of the spine. IMPRESSION: Dilated small bowel proximally becomes more narrow and normal in caliber at the site of the metallic clips in the mesentery of the left lower quadrant. Findings are suggestive of partial small bowel obstruction. There is no hernia. There is no free air, free fluid, or fluid collection. Signed by Brooks Smith MD 03/23/2017 08:18 P
[2017-03-23] MEDS ORDERED: HYDROCORTISONE 1% CREAM 30 GM TOP PRN (13:00)
[2017-03-23] MEDS ORDERED: DIAPER RELIEF OINT (DESITIN) 60GM TOP PRN (13:00)
[2017-03-23] MEDS: SENOKOT S TAB PO SCH ×2 (13:06→21:39)
[2017-03-23] MEDS: HEPARIN SOD (PORCINE) 5000 UNITS/ML VIAL SC SCH ×2 (13:07→21:39)
[2017-03-23] MEDS: KCL 20MEQ IN D5/0.45NS 1000ML 1,000 ML IV SCH ×2 (13:08→21:39)
[2017-03-23] MEDS ORDERED: ALBUTEROL 90 MCG/ACT 8GM HFA INHALER INH PRN (13:45)
[2017-03-23] MEDS: VITAMIN D 1,000 INTERNATIONAL UNITS TABLET PO SCH (14:08)
[2017-03-23] MEDS: FLUoxetine 20 MG CAP PO SCH (14:08)
[2017-03-23] MEDS: SIMVASTATIN 20 MG TAB PO SCH (14:08)
[2017-03-23] MEDS: ERTAPENEM SODIUM 1 GM in NS MINI-BAG PLUS 50 ML IV SCH (14:43)
[2017-03-23] MEDS ORDERED: CHLORASEPTIC SPRAY MT PRN (17:00)
[2017-03-23] MEDS: KETOROLAC 30 MG/ML VIAL (J1885) IV SCH (19:35)
[2017-03-23] MEDS: ONDANSETRON 4MG/2ML VIAL (J2405) IV PRN (19:51)
[2017-03-23 22:00] VITALS: BP 137/91
[2017-03-24] MEDS: KETOROLAC 30 MG/ML VIAL (J1885) IV SCH ×4 (01:11→20:32)
[2017-03-24] MEDS: KCL 20MEQ IN D5/0.45NS 1000ML 1,000 ML IV SCH ×3 (01:12→20:32)
[2017-03-24] MEDS: ONDANSETRON 4MG/2ML VIAL (J2405) IV PRN ×2 (01:12→20:31)
[2017-03-24 05:57] LABS: MEAN CORPUSCULAR HEMOGLOBIN 30.9 pg (27.0-33.0); MEAN CORPUSCULAR HGB CONC 33.4 g/dl (32.0-36.5); MEAN CORPUSCULAR VOLUME 92.5 fl (80.0-96.0); RED CELL DISTRIBUTION WIDTH 12.6 % (11.5-14.5); WHITE BLOOD COUNT 7.2 K/mm3 (4.0-10.0)
[2017-03-24 06:00] VITALS: BP 146/94
[2017-03-24] MEDS: HEPARIN SOD (PORCINE) 5000 UNITS/ML VIAL SC SCH ×3 (06:00→21:57)
[2017-03-24 06:31] LABS: ANION GAP 8 MEQ/L (8-16); BLOOD UREA NITROGEN 10 MG/DL (7-18); CALCIUM LEVEL 8.6 MG/DL (8.8-10.2); CARBON DIOXIDE LEVEL 25 MEQ/L (21-32); CHLORIDE LEVEL 98 MEQ/L (98-107); CREATININE FOR GFR 1.08 MG/DL (0.70-1.30); GLOMERULAR FILTRATION RATE > 60.0 (>49); GLUCOSE, FASTING 115 MG/DL (80-110); MAGNESIUM LEVEL 1.8 MG/DL (1.8-2.4); POTASSIUM SERUM 4.5 MEQ/L (3.5-5.1); SODIUM LEVEL 131 MEQ/L (136-145)
[2017-03-24] MEDS: SIMVASTATIN 20 MG TAB PO SCH (08:46)
[2017-03-24] MEDS: VITAMIN D 1,000 INTERNATIONAL UNITS TABLET PO SCH (08:46)
[2017-03-24] MEDS: SENOKOT S TAB PO SCH ×2 (08:46→20:33)
[2017-03-24] MEDS: PANTOPRAZOLE 40MG TAB (PROTONIX) PO SCH (08:46)
[2017-03-24] MEDS: FLUoxetine 20 MG CAP PO SCH (08:47)
[2017-03-24 14:00] VITALS: BP 135/84
[2017-03-24] MEDS: ERTAPENEM SODIUM 1 GM in NS MINI-BAG PLUS 50 ML IV SCH (14:19)
--- NOTE | 2017-03-24 19:01 | HPE ---
DATE OF ADMISSION: 03/23/2017 CHIEF COMPLAINT: Nausea and vomiting. HISTORY OF PRESENT ILLNESS: Patient is a 61-year-old male who recently had a laparoscopic sigmoidectomy by myself last Thursday. He is 1 week out from surgery. He was discharged home Thursday morning after having a bowel movement postoperatively. He did not have any problems at all during the day on Thursday. No nausea. No vomiting. He was tolerating a diet. Pain was controlled. He continued to pass flatus and have bowel movements. Over the day on Thursday, he also was not really having any difficulties. Late Thursday evening he started to have some nausea and some vomiting. He had large volumes of vomit throughout the evening. He called the on-call physician just after 6 this morning and was recommended to come to the emergency room for evaluation. Currently he has an nasogastric (NG) in place. He feels much improved. CT scan was done, which does show likely postoperative ileus versus a partial small-bowel obstruction. Therefore, he will be admitted to the hospital. PAST MEDICAL HISTORY: 1. Hypercholesterolemia. 2. Gastroesophageal reflux disease (GERD) PAST SURGICAL HISTORY 1. Hiatal hernia repair. 2. Right arm fracture repair. 3. Tympanoplasty. 4. Bilateral inguinal hernia repairs. 5. A laparoscopic sigmoidectomy last week. SOCIAL HISTORY: Denies drug, alcohol, tobacco abuse. FAMILY HISTORY: Noncontributory. ALLERGIES: AMOXICILLIN. HOME MEDICATIONS: Please see medication reconciliation. REVIEW OF SYSTEMS: Pertinent positives and negatives stated in the history of present illness (HPI).. PHYSICAL EXAMINATION: GENERAL: Alert and oriented times three. No acute distress. VITAL SIGNS: Temperature 97.4, pulse 112, respirations 20, blood pressure 154/97, pulse oximetry 96% on room air. HEENT: Pupils equal, round, react to light and accommodation. HEART: S1, S2, regular rate and rhythm. LUNGS: Clear to auscultation bilaterally. ABDOMEN: Soft, slightly distended. Slight tenderness in the left midabdomen. No rebounding or guarding. No signs of peritonitis. EXTREMITIES: No clubbing, cyanosis, or edema. LABORATORY DATA: White count 11.5, hemoglobin 14.9, platelets 425. Sodium 132, potassium 4.3. IMAGING STUDIES: CT abdomen and pelvis shows dilated small bowel proximately. Becomes more narrow and normal in caliber at the site of the metallic clips in the mesentery of the left lower quadrant. Findings are suggestive of partial small-bowel obstruction. No signs of hernia. No free air, free fluid, or fluid collections ASSESSMENT AND PLAN: Patient, again, is a 61-year-old male with a partial small-bowel obstruction, likely secondary to surgery versus a postoperative ileus, status post laparoscopic sigmoidectomy. He currently is postoperative day 7. He is tolerating well with the NG tube in place with brownish fluid draining. No more nausea and vomiting. Recommendation is to keep the NG tube in place. Keep him on IV fluids due to poor urine output. Strict intake and output. Continue to ambulate. Will likely advance his diet once his NG tube output decreases and his pain goes away. If he does not open up within the next week, then we will reconsider possible imaging versus diagnostic laparoscopy to determine the cause of this obstruction.
[2017-03-24 22:00] VITALS: BP 140/87
[2017-03-25] MEDS: ONDANSETRON 4MG/2ML VIAL (J2405) IV PRN ×2 (02:13→09:02)
[2017-03-25] MEDS: KETOROLAC 30 MG/ML VIAL (J1885) IV SCH ×2 (02:13→09:01)
[2017-03-25] MEDS: KCL 20MEQ IN D5/0.45NS 1000ML 1,000 ML IV SCH (02:18)
[2017-03-25 06:00] VITALS: BP 133/85
[2017-03-25] MEDS: HEPARIN SOD (PORCINE) 5000 UNITS/ML VIAL SC SCH (06:18)
[2017-03-25 06:49] LABS: MEAN CORPUSCULAR HEMOGLOBIN 30.9 pg (27.0-33.0); MEAN CORPUSCULAR HGB CONC 33.2 g/dl (32.0-36.5); RED CELL DISTRIBUTION WIDTH 12.2 % (11.5-14.5); WHITE BLOOD COUNT 7.5 K/mm3 (4.0-10.0)
[2017-03-25 07:11] LABS: ANION GAP 5 MEQ/L (8-16); BLOOD UREA NITROGEN 7 MG/DL (7-18); CALCIUM LEVEL 8.6 MG/DL (8.8-10.2); CARBON DIOXIDE LEVEL 26 MEQ/L (21-32); CHLORIDE LEVEL 102 MEQ/L (98-107); CREATININE FOR GFR 0.96 MG/DL (0.70-1.30); GLOMERULAR FILTRATION RATE > 60.0 (>49); GLUCOSE, FASTING 100 MG/DL (80-110); MAGNESIUM LEVEL 1.8 MG/DL (1.8-2.4); POTASSIUM SERUM 4.9 MEQ/L (3.5-5.1); SODIUM LEVEL 133 MEQ/L (136-145)
[2017-03-25] MEDS: PANTOPRAZOLE 40MG TAB (PROTONIX) PO SCH (09:02)
[2017-03-25] MEDS: SENOKOT S TAB PO SCH (09:02)
[2017-03-25] MEDS: VITAMIN D 1,000 INTERNATIONAL UNITS TABLET PO SCH (09:02)
[2017-03-25] MEDS: SIMVASTATIN 20 MG TAB PO SCH (09:02)
[2017-03-25] MEDS: FLUoxetine 20 MG CAP PO SCH (09:02)
--- NOTE | 2017-03-25 22:51 | DSES ---
DATE OF ADMISSION: 03/23/2017 DATE OF DISCHARGE: 03/25/2017 ADMISSION DIAGNOSIS: Postoperative ileus. DISCHARGE DIAGNOSIS: Postoperative ileus. HOSPITAL COURSE: The patient is a 61-year-old male who had a laparoscopic sigmoidectomy with me last 03/16/2017. He was in the hospital for the week. He had very slow return of bowel function. He was discharged home on 03/21/2017. Over the weekend he had increasing nausea and vomiting starting Thursday evening with large amounts of emesis so he came into the emergency room early Thursday morning for evaluation. In the emergency room (ER) he had a CT scan which showed likely ileus versus partial small-bowel obstruction with a transition zone in the small bowel. However, since he had no manipulation of the small bowel at all during his procedure, this is likely all just a postoperative delayed ileus. He had an NG tube placed Thursday in the ER which relieved his symptoms. His nausea and vomiting went away as well as his abdominal pain. Yesterday morning 03/24/2017, he felt much improved. His NG tube was clamped and he was placed on a clear liquid diet. He had multiple bowel movements as well as flatus throughout the day. NG tube was removed yesterday evening. He continued to tolerate diet. This morning he is doing much better still and plan is to discharge home today. He will not need any more medications. He will be discharged home today on a regular diet, I just advised him to try to avoid anything with high fiber for now until he gives another week or two for his bowels to continue to heal up from surgery. He will follow with me in the office next Thursday to have his sachin removed and if there is any problems or questions, he knows to call the office.
== END 2017-03-25 11:00 | disposition home or self-care (01) | DRG 247 ==
LOC: M ED 08:27 → M ED INP 10:34 → M MSPAV 12:28
PROVIDERS: ADMIT Surgery; ATTEND Surgery
DX: K56.7 Ileus, unspecified (principal); E78.00 Pure hypercholesterolemia, unspecified; K21.9 Gastro-esophageal reflux disease without esophagitis; Z88.0 Allergy status to penicillin; Z79.899 Other long term (current) drug therapy

== ENCOUNTER 2018-05-12 08:28 | Day surgery (SDC) | payer BC, OTHER ==
[2018-05-12] MEDS: NS 1,000 ML IV (09:02)
[2018-05-12] MEDS ORDERED: PROPOFOL 500 MG/50 ML VIAL As Ordered (09:57)
[2018-05-12] MEDS ORDERED: LIDOCAINE 2% INJ 100 MG/5 ML SDV (FOR ANES.) As Ordered (09:57)
== END 2018-05-12 11:05 | disposition home or self-care (01) ==
LOC: M OPP 08:28
DX: Z09 Encounter for follow-up examination after completed treatment for conditions other than malignant neoplasm (principal); Z98.890 Other specified postprocedural states; Z86.010 Personal history of colon polyps; K57.30 Diverticulosis of large intestine without perforation or abscess without bleeding; K64.1 Second degree hemorrhoids; R00.8 Other abnormalities of heart beat; K57.32 Diverticulitis of large intestine without perforation or abscess without bleeding; E78.00 Pure hypercholesterolemia, unspecified; R11.10 Vomiting, unspecified; K21.9 Gastro-esophageal reflux disease without esophagitis; R12 Heartburn; R23.3 Spontaneous ecchymoses; M19.90 Unspecified osteoarthritis, unspecified site; J45.909 Unspecified asthma, uncomplicated; Z87.19 Personal history of other diseases of the digestive system; Z88.0 Allergy status to penicillin; Z91.011 Allergy to milk products; Z91.040 Latex allergy status; Z79.899 Other long term (current) drug therapy; Z80.52 Family history of malignant neoplasm of bladder
CPT/HCPCS: 45378

== ENCOUNTER → 2019-03-08 | Outpatient (REF) | payer MEDICARE, OTHER ==
[~2019-03-08] MED LIST changes: +ALBU17IN INH; +CIPR-249 PO; -CIPR500T89 PO; +DESI40PS3 TOP; +FLUO20CA19; -FLUO20CA9; +HYDR-3713 PO; +HYDR-3715 PO; +HYDR1CRE2 TOP; +HYOS0.1259 PO; +IBUP-1114 PO; +MELO15TA28; +MELO15TA28 PO; -MELO15TA4; -MELO15TA4 PO; +METR-135; -METR250T15; -NORCOTAB PO; -PANT40TA2; -PANT40TA2 PO; +PANT40TA3; +PANT40TA3 PO; -PROA1AER; -PROA1AER INH; +PROAAER10; +PROAAER10 INH; +PROZ20CA11 PO; -SENN1TAB2 PO; +SENN1TAB40 PO; +SENN1TAB41 PO; +SIMV20TA2 PO; +VITA100066 PO
[2019-03-08 13:27] LABS: BASO # 0.1 10^3/uL (0.0-0.2); BASO % 1.2 % (0.0-1.0); EOS # 0.2 10^3/uL (0.0-0.50); EOS % 2.8 % (0.0-3.0); HEMATOCRIT 45.5 % (42.0-52.0); HEMOGLOBIN 15.3 g/dl (13.5-17.5); LYMPH # 2.1 10^3/uL (1.5-4.5); LYMPH % 37.7 % (24.0-44.0); MEAN CORPUSCULAR HEMOGLOBIN 30.1 pg (27.0-33.0); MEAN CORPUSCULAR HGB CONC 33.6 g/dl (32.0-36.5); MEAN CORPUSCULAR VOLUME 89.4 fl (80.0-96.0); MONO # 0.6 10^3/uL (0.0-0.8); NEUTROPHILS # 2.6 10^3/uL (1.8-7.7); NEUTROPHILS % 47.1 % (36.0-66.0); PLATELET COUNT, AUTOMATED 230 10^3/uL (150-450); RED BLOOD COUNT 5.09 10^6/uL (4.30-6.10); WHITE BLOOD COUNT 5.6 10^3/uL (4.0-10.0)
[2019-03-08 14:07] LABS: CHOLESTEROL RISK RATIO 4.054 (<5)
== END ==
LOC: M SFHCADAM 08:01
PROVIDERS: ATTEND Family Medicine
DX: Z00.00 Encounter for general adult medical examination without abnormal findings (principal); R03.0 Elevated blood-pressure reading, without diagnosis of hypertension

== ENCOUNTER → 2019-03-17 | Outpatient (REF) | payer MEDICARE, OTHER ==
[~2019-03-17] MED LIST changes: +CHOL50002 PO; +GLUC1CAP10 PO; +[UNRECOGNIZED DRUG - CODE] PO
[2019-03-17 19:27] LABS: ALBUMIN 3.8 GM/DL (3.2-5.2); BILIRUBIN,TOTAL 0.3 MG/DL (0.2-1.0); CALCIUM LEVEL 9.6 MG/DL (8.8-10.2); CREATININE FOR GFR 1.31 MG/DL (0.70-1.30); GLOMERULAR FILTRATION RATE 58.5 (>49); POTASSIUM SERUM 4.2 MEQ/L (3.5-5.1); TOTAL PROTEIN 7.4 GM/DL (6.4-8.2)
== END ==
LOC: M SFHCADAM 13:33
PROVIDERS: ATTEND Family Medicine
DX: Z01.818 Encounter for other preprocedural examination (principal)
CPT/HCPCS: 80053; G0463

== ENCOUNTER → 2019-03-28 | Outpatient (CLI) | payer MEDICARE, OTHER ==
--- NOTE | 2019-03-31 22:48 | ECGEPIP ---
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
== END ==
LOC: M EKG 06:56
PROVIDERS: ATTEND Anesthesiology
DX: Z01.812 Encounter for preprocedural laboratory examination (principal)

== ENCOUNTER 2019-04-01 06:05 | Day surgery (SDC) | payer MEDICARE, BC, OTHER ==
[~2019-04-01] VITALS: Ht 190.5 cm; Wt 113.4 kg
[~2019-04-01 06:05] MED LIST changes: +LIDOCAINE 1% MDV 20ML VIAL SQ PRN
[2019-04-01] MEDS ORDERED: BUPIVACAINE/EPIN 0.25% 30 ML VIAL As Ordered ONE (06:43)
[2019-04-01] MEDS ORDERED: PROPOFOL 200 MG/20 ML VIAL As Ordered ONE ×2 (06:55→08:06)
[2019-04-01] MEDS ORDERED: KETOROLAC 60 MG/2 ML VIAL (J1885) As Ordered ONE (06:55)
[2019-04-01] MEDS ORDERED: LIDOCAINE 2% INJ 100 MG/5 ML SDV (FOR ANES.) As Ordered ONE ×2 (06:55→07:07)
[2019-04-01] MEDS ORDERED: ONDANSETRON 4MG/2ML VIAL (J2405) As Ordered ONE ×2 (06:55→08:12)
[2019-04-01] MEDS ORDERED: ROCURONIUM BROMIDE 50 MG/5 ML VIAL As Ordered ONE ×2 (06:55→07:07)
[2019-04-01] MEDS ORDERED: dexameTHASONE 4 MG/ML 1ML VIAL (J1100) As Ordered ONE (06:55)
[2019-04-01] MEDS ORDERED: SUGAMMADEX SODIUM 500 MG/5 ML VIAL (BRIDION) As Ordered ONE (06:55)
[2019-04-01] MEDS ORDERED: fentaNYL 250 MCG/5 ML INJECTION (J3010) As Ordered ONE (06:56)
[2019-04-01] MEDS ORDERED: KETAMINE HCL 200 MG/20 ML VIAL As Ordered ONE (06:56)
[2019-04-01] MEDS ORDERED: ACETAMINOPHEN 1000MG 100ML IV BTL (OFIRMEV) (J0131 PER 10MG) As Ordered ONE (06:56)
[2019-04-01] MEDS ORDERED: MIDAZOLAM INJ 2 MG/2 ML VIAL (J2250) As Ordered ONE (06:57)
[2019-04-01] MEDS ORDERED: LR 1,000 ML IV ONE (07:00)
[2019-04-01] MEDS ORDERED: CLINDAMYCIN 600 MG in APPROPRIATE DILUENT 1 EA IV ONE (07:30)
[2019-04-01] MEDS ORDERED: PROPOFOL 500 MG/50 ML VIAL As Ordered ONE ×2 (07:32→08:15)
[2019-04-01] MEDS ORDERED: METHOCARBAMOL 1,000 MG/10 ML VIAL (J2800) As Ordered ONE (08:22)
[2019-04-01] MEDS ORDERED: NORCO, ANEXSIA 5/325MG TABLET (HYDROcodone/ACETAMINOPHEN) PO PRN (10:15)
[2019-04-01] MEDS ORDERED: HYDROMORPHONE HCL 0.5 MG/ 0.5 ML SYRINGE (J1170 PER 1) IV PRN (10:15)
[2019-04-01] MEDS ORDERED: ONDANSETRON 4MG/2ML VIAL (J2405) IV PRN (10:15)
[2019-04-01] MEDS ORDERED: PERCOCET 5MG/325MG TAB PO PRN (10:15)
[2019-04-01] MEDS ORDERED: fentaNYL 100 MCG/2 ML INJECTION (J3010) IV PRN (10:15)
[2019-04-01] MEDS ORDERED: LR 1,000 ML IV SCH (10:15)
[2019-04-01] MEDS ORDERED: oxyCODONE 5MG TAB As Ordered ONE (10:39)
[2019-04-01] MEDS ORDERED: oxyCODONE 5MG TAB PO PRN (11:15)
[2019-04-01 12:30] VITALS: BP 141/88
--- NOTE | 2019-04-01 14:11 | RO ---
DATE OF PROCEDURE: 04/01/2019 PREOPERATIVE DIAGNOSIS: Incisional hernia. POSTOPERATIVE DIAGNOSIS: Incisional hernia. PROCEDURE: Robotic repair of incisional hernia. SURGEON: Brooks Dove DO DISH ROOM WORKER: Glenna Felix NP ANESTHESIA: General. ESTIMATED BLOOD LOSS: 5. COMPLICATIONS: None. INDICATIONS FOR PROCEDURE: The patient is a 63-year-old male status post colon resection, had a midline minilaparotomy done for resection of the specimen of bowel, over the past few months he has developed incisional hernia at that location. Recommendation is to proceed with robotic repair. Risks and benefits of procedure not limited but including bleeding, infection, hernia formation, hernia recurrence, damage to surrounding structures, need for further surgery were discussed in detail with the patient. Informed consent was obtained and procedure was planned. DESCRIPTION OF PROCEDURE: The patient brought back to operating room #7. After sufficient sedation, the abdomen sterilely prepped and draped. Next, a time-out was done to confirm proper patient and proper procedure. Following that an 8 mm incision was made in left lower quadrant, Veress needle inserted and the abdomen was insufflated 2 mmHg. Next, the Veress needle was removed. An 8 mm robotic Optiview port was used to gain access in the abdomen. Once the abdomen was entered, two more 8 mm ports were placed in the left side. The robot was then docked to the ports. Next, from the console I was able to identify a very large incisional hernia in the lower midline of the abdomen. It had omentum adhered to the inside of it. I was able to dissect this free using cautery. Once that was completed, I freed up the preperitoneal space surrounding it, got all of the preperitoneal fat dissected free. Once this was all completed, using an #0 Stratafix suture I was able to reapproximate the entire fascial defect. Once that was completed, a 12 cm round Parietex composite mesh was taken using a #2-0 V-Loc. I secured the mesh to the fascia in the midline and then ran the running V-Loc all way around the perimeter of the outside of the mesh holding it in place. Once this was all completed, the abdomen was desufflated. Skin incisions were closed with #4-0 Vicryl subcuticular sutures. The abdomen was cleaned and dried. Steri-Strips, 4 x 4, and tape were applied thus ending procedure.
== END 2019-04-01 13:00 | disposition home or self-care (01) ==
LOC: M SDC 06:05
PROVIDERS: ATTEND Surgery
DX: K43.2 Incisional hernia without obstruction or gangrene (principal); E78.00 Pure hypercholesterolemia, unspecified; E78.49 Other hyperlipidemia; J45.909 Unspecified asthma, uncomplicated; K21.9 Gastro-esophageal reflux disease without esophagitis; K44.9 Diaphragmatic hernia without obstruction or gangrene; F41.9 Anxiety disorder, unspecified; Z79.51 Long term (current) use of inhaled steroids; Z79.899 Other long term (current) drug therapy
CPT/HCPCS: 49654; C1781; J0131; J1100; J1885; J2250; J2405; J2800; J3010

== ENCOUNTER → 2020-02-09 | Outpatient (REF) | payer MEDICARE, OTHER ==
[~2020-02-09] MED LIST changes: -FLUO20CA19; +FLUO20CA20 PO; +FLUO20CA22; -FLUO20CA8 PO; -LIDOCAINE 1% MDV 20ML VIAL SQ PRN; +SENN-53 PO; -SENN1TAB40 PO; -SIMV20TA2; -SIMV20TA2 PO; +SIMV20TA22; +SIMV20TA22 PO
[2020-02-09 13:16] LABS: BASO # 0.1 10^3/uL (0.0-0.2); BASO % 0.9 % (0.0-1.0); EOS # 0.2 10^3/uL (0.0-0.5); EOS % 3.1 % (0.0-3.0); HEMATOCRIT 43.8 % (42.0-52.0); HEMOGLOBIN 15.2 g/dl (13.5-17.5); LYMPH # 2.4 10^3/uL (1.5-5.0); LYMPH % 37.8 % (24.0-44.0); MEAN CORPUSCULAR HEMOGLOBIN 31.5 pg (27.0-33.0); MEAN CORPUSCULAR HGB CONC 34.7 g/dl (32.0-36.5); MEAN CORPUSCULAR VOLUME 90.7 fl (80.0-96.0); MONO # 0.7 10^3/uL (0.0-0.8); MONO % 11.3 % (0.0-5.0); NEUTROPHILS % 46.6 % (36.0-66.0); PLATELET COUNT, AUTOMATED 250 10^3/uL (150-450); RED BLOOD COUNT 4.83 10^6/uL (4.30-6.10); WHITE BLOOD COUNT 6.4 10^3/uL (4.0-10.0)
[2020-02-09 13:41] LABS: ALBUMIN 3.9 GM/DL (3.2-5.2); ALT/SGPT 30 U/L (12-78); BILIRUBIN,TOTAL 0.4 MG/DL (0.2-1.0); BLOOD UREA NITROGEN 17 MG/DL (7-18); CALCIUM LEVEL 9.7 MG/DL (8.8-10.2); CARBON DIOXIDE LEVEL 28 MEQ/L (21-32); CHLORIDE LEVEL 104 MEQ/L (98-107); CHOLESTEROL LEVEL 151 MG/DL (<200); CHOLESTEROL RISK RATIO 4.081 (<5); CREATININE FOR GFR 1.14 MG/DL (0.70-1.30); GLOMERULAR FILTRATION RATE > 60.0 (>49); GLUCOSE, FASTING 95 MG/DL (70-100); HDL CHOLESTEROL 37 MG/DL (>40); LDL CHOLESTEROL 87 MG/DL (<100); NON-HDL-C 114 MG/DL; POTASSIUM SERUM 4.8 MEQ/L (3.5-5.1); SODIUM LEVEL 138 MEQ/L (136-145); TOTAL PROTEIN 7.7 GM/DL (6.4-8.2); TRIGLYCERIDES LEVEL 133 MG/DL (<150)
== END ==
LOC: M SFHCADAM 08:53
PROVIDERS: ATTEND Family Medicine
DX: Z00.00 Encounter for general adult medical examination without abnormal findings (principal); Z79.899 Other long term (current) drug therapy

== ENCOUNTER → 2021-02-08 | Outpatient (REF) | payer MEDICARE, OTHER ==
[~2021-02-08] MED LIST changes: +PANT40TA29; +PANT40TA29 PO; -PANT40TA3; -PANT40TA3 PO
[2021-02-08 13:07] LABS: BASO # 0.1 10^3/uL (0.0-0.2); BASO % 0.9 % (0.0-1.0); EOS # 0.2 10^3/uL (0.0-0.5); EOS % 2.8 % (0.0-3.0); HEMATOCRIT 45.2 % (42.0-52.0); HEMOGLOBIN 14.7 g/dl (13.5-17.5); LYMPH # 1.8 10^3/uL (1.5-5.0); LYMPH % 26.7 % (24.0-44.0); MEAN CORPUSCULAR HEMOGLOBIN 30.1 pg (27.0-33.0); MEAN CORPUSCULAR HGB CONC 32.5 g/dl (32.0-36.5); MEAN CORPUSCULAR VOLUME 92.4 fl (80.0-96.0); MONO # 0.7 10^3/uL (0.0-0.8); NEUTROPHILS % 58.9 % (36.0-66.0); PLATELET COUNT, AUTOMATED 271 10^3/uL (150-450); RED BLOOD COUNT 4.89 10^6/uL (4.30-6.10); WHITE BLOOD COUNT 6.8 10^3/uL (4.0-10.0)
[2021-02-08 13:43] LABS: ALBUMIN 3.8 GM/DL (3.2-5.2); ALT/SGPT 34 U/L (12-78); BILIRUBIN,TOTAL 0.2 MG/DL (0.2-1.0); BLOOD UREA NITROGEN 17 MG/DL (7-18); CARBON DIOXIDE LEVEL 28 MEQ/L (21-32); CHLORIDE LEVEL 103 MEQ/L (98-107); CHOLESTEROL LEVEL 149 MG/DL (<200); CHOLESTEROL RISK RATIO 3.547 (<5); CREATININE FOR GFR 1.19 MG/DL (0.70-1.30); GLOMERULAR FILTRATION RATE > 60.0 (>49); GLUCOSE, FASTING 92 MG/DL (70-100); HDL CHOLESTEROL 42 MG/DL (>40); LDL CHOLESTEROL 83 MG/DL (<100); NON-HDL-C 107 MG/DL; POTASSIUM SERUM 4.8 MEQ/L (3.5-5.1); SODIUM LEVEL 137 MEQ/L (136-145); TOTAL PROTEIN 7.3 GM/DL (6.4-8.2); TRIGLYCERIDES LEVEL 118 MG/DL (<150)
== END ==
LOC: M SFHCADAM 08:47
PROVIDERS: ATTEND Family Medicine
DX: Z00.00 Encounter for general adult medical examination without abnormal findings (principal); Z79.899 Other long term (current) drug therapy

== ENCOUNTER → 2021-05-29 | Outpatient (REF) | payer MEDICARE, OTHER | LOC: M LAB REF 12:31 | PROVIDERS: ATTEND Ophthalmology | DX: C44.91 Basal cell carcinoma of skin, unspecified (principal) ==

== ENCOUNTER → 2021-06-13 | Outpatient (REF) | payer MEDICARE, OTHER ==
[2021-06-13 16:51] LABS: BASO # 0.1 10^3/uL (0.0-0.2); BASO % 0.5 % (0.0-1.0); EOS # 0.1 10^3/uL (0.0-0.5); EOS % 1.4 % (0.0-3.0); HEMATOCRIT 42.8 % (42.0-52.0); HEMOGLOBIN 14.3 g/dl (13.5-17.5); LYMPH # 2.2 10^3/uL (1.5-5.0); MEAN CORPUSCULAR HEMOGLOBIN 30.2 pg (27.0-33.0); MEAN CORPUSCULAR HGB CONC 33.4 g/dl (32.0-36.5); MEAN CORPUSCULAR VOLUME 90.5 fl (80.0-96.0); MONO # 1.1 10^3/uL (0.0-0.8); MONO % 11.5 % (2.0-8.0); NEUTROPHILS # 5.9 10^3/uL (1.5-8.5); NEUTROPHILS % 63.3 % (36.0-66.0); PLATELET COUNT, AUTOMATED 253 10^3/uL (150-450); RED BLOOD COUNT 4.73 10^6/uL (4.30-6.10); WHITE BLOOD COUNT 9.4 10^3/uL (4.0-10.0)
[2021-06-13 17:13] LABS: ALBUMIN 3.4 GM/DL (3.2-5.2); BILIRUBIN,TOTAL 0.3 MG/DL (0.2-1.0); CALCIUM LEVEL 9.2 MG/DL (8.8-10.2); CREATININE FOR GFR 1.35 MG/DL (0.70-1.30); GLOMERULAR FILTRATION RATE 56.1 (>49); POTASSIUM SERUM 4.8 MEQ/L (3.5-5.1); THYROID STIMULATING HORMONE 1.92 uIU/ML (0.358-3.740)
== END ==
LOC: M SFHCADAM 14:01
PROVIDERS: ATTEND Family Medicine
DX: I10 Essential (primary) hypertension (principal); R53.81 Other malaise; R53.83 Other fatigue
CPT/HCPCS: 80053; 84443; 85025; G0463

== ENCOUNTER → 2022-02-27 | Outpatient (REF) | payer MEDICARE, OTHER ==
[~2022-02-27] MED LIST changes: +FLUO-96 PO; -FLUO20CA20 PO; -METR-135; +METR-369
[2022-02-27 13:14] LABS: BASO # 0.1 10^3/uL (0.0-0.2); EOS # 0.1 10^3/uL (0.0-0.5); EOS % 2.7 % (0.0-3.0); HEMATOCRIT 43.5 % (42.0-52.0); HEMOGLOBIN 14.6 g/dl (13.5-17.5); LYMPH % 37.7 % (24.0-44.0); MEAN CORPUSCULAR HEMOGLOBIN 30.6 pg (27.0-33.0); MEAN CORPUSCULAR HGB CONC 33.6 g/dl (32.0-36.5); MEAN CORPUSCULAR VOLUME 91.2 fl (80.0-96.0); MONO # 0.7 10^3/uL (0.0-0.8); MONO % 12.8 % (2.0-8.0); NEUTROPHILS # 2.4 10^3/uL (1.5-8.5); NEUTROPHILS % 45.6 % (36.0-66.0); PLATELET COUNT, AUTOMATED 244 10^3/uL (150-450); RED BLOOD COUNT 4.77 10^6/uL (4.30-6.10); WHITE BLOOD COUNT 5.2 10^3/uL (4.0-10.0)
[2022-02-27 13:47] LABS: ALBUMIN 3.8 GM/DL (3.2-5.2); ALT/SGPT 38 U/L (12-78); BILIRUBIN,TOTAL 0.5 MG/DL (0.2-1.0); BLOOD UREA NITROGEN 17 MG/DL (7-18); CALCIUM LEVEL 10.1 MG/DL (8.8-10.2); CARBON DIOXIDE LEVEL 29 MEQ/L (21-32); CHLORIDE LEVEL 102 MEQ/L (98-107); CHOLESTEROL LEVEL 193 MG/DL (<200); CHOLESTEROL RISK RATIO 6.031 (<5); CREATININE FOR GFR 1.11 MG/DL (0.70-1.30); GLOMERULAR FILTRATION RATE > 60.0 (>49); GLUCOSE, FASTING 101 MG/DL (70-100); HDL CHOLESTEROL 32 MG/DL (>40); LDL CHOLESTEROL 119 MG/DL (<100); NON-HDL-C 161 MG/DL; POTASSIUM SERUM 4.9 MEQ/L (3.5-5.1); SODIUM LEVEL 138 MEQ/L (136-145); TOTAL PROTEIN 7.4 GM/DL (6.4-8.2); TRIGLYCERIDES LEVEL 212 MG/DL (<150)
== END ==
LOC: M SFHCADAM 07:54
PROVIDERS: ATTEND Family Medicine
DX: Z00.00 Encounter for general adult medical examination without abnormal findings (principal); E78.00 Pure hypercholesterolemia, unspecified

== ENCOUNTER → 2023-03-25 | Outpatient (REF) | payer MEDICARE, BC ==
[~2023-03-25] MED LIST changes: +SIMV-253 PO; -ZOCO20TA PO
[2023-03-25 14:33] LABS: ALBUMIN 3.8 G/DL (3.2-5.2); ALKALINE PHOSPHATASE 65 U/L (46-116); ALT/SGPT 23 U/L (7.0-40); AST/SGOT 20 U/L (<34); BILIRUBIN,TOTAL 0.4 MG/DL (0.3-1.2); BLOOD UREA NITROGEN 18 MG/DL (9-23); CALCIUM LEVEL 9.2 MG/DL (8.3-10.6); CARBON DIOXIDE LEVEL 29 MMOL/L (20-31); CHLORIDE LEVEL 99 MMOL/L (98-107); CHOLESTEROL LEVEL 142 MG/DL (<200); CHOLESTEROL RISK RATIO 4.27 (<5); CREATININE FOR GFR 1.15 MG/DL (0.70-1.30); GLOMERULAR FILTRATION RATE > 60.0 (>49); GLUCOSE, FASTING 100 MG/DL (74-106); HDL CHOLESTEROL 33.2 MG/DL (>40); LDL CHOLESTEROL 78.6 MG/DL (<100); NON-HDL-C 108.8 MG/DL; POTASSIUM SERUM 4.4 MMOL/L (3.5-5.1); SODIUM LEVEL 134 MMOL/L (136-145); TOTAL PROTEIN 7.1 G/DL (5.7-8.2); TRIGLYCERIDES LEVEL 151 MG/DL (<150)
[2023-03-25 14:35] LABS: THYROID STIMULATING HORMONE 1.101 uIU/ML (0.55-4.78)
[2023-03-25 14:39] LABS: BASO # 0.1 10^3/uL (0.0-0.2); BASO % 1.1 % (0.0-1.0); EOS # 0.1 10^3/uL (0.0-0.5); EOS % 2.6 % (0.0-3.0); HEMATOCRIT 45.5 % (42.0-52.0); HEMOGLOBIN 15.2 g/dl (13.5-17.5); LYMPH % 36.1 % (24.0-44.0); MEAN CORPUSCULAR HEMOGLOBIN 31.3 pg (27.0-33.0); MEAN CORPUSCULAR HGB CONC 33.4 g/dl (32.0-36.5); MEAN CORPUSCULAR VOLUME 93.6 fl (80.0-96.0); MONO # 0.6 10^3/uL (0.0-0.8); MONO % 11.5 % (2.0-8.0); NEUTROPHILS # 2.6 10^3/uL (1.5-8.5); NEUTROPHILS % 48.5 % (36.0-66.0); PLATELET COUNT, AUTOMATED 223 10^3/uL (150-450); RED BLOOD COUNT 4.86 10^6/uL (4.30-6.10); WHITE BLOOD COUNT 5.4 10^3/uL (4.0-10.0)
== END ==
LOC: M SFHCADAM 07:08
PROVIDERS: ATTEND Family Medicine
DX: Z00.00 Encounter for general adult medical examination without abnormal findings (principal); E07.9 Disorder of thyroid, unspecified; E78.00 Pure hypercholesterolemia, unspecified; Z12.5 Encounter for screening for malignant neoplasm of prostate
CPT/HCPCS: 80053; 80061; 84443; 85025; G0103

== ENCOUNTER 2024-04-10 17:25 | Emergency (ER) | payer MEDICARE, BC ==
[~2024-04-10] VITALS: Ht 188 cm; Wt 113.2 kg
[~2024-04-10 17:25] MED LIST changes: +FLUO-365; -FLUO20CA22; -SENN1TAB41 PO; +SENN1TAB85 PO
[2024-04-10] MEDS ORDERED: NS 1,000 ML IV SCH (17:55)
[2024-04-10] MEDS: PANTOPRAZOLE 40MG VIAL IV ONE (18:17)
[2024-04-10] MEDS: MORPHINE 4 MG/ML 1ML VIAL IV PRN (18:17)
[2024-04-10] MEDS: ONDANSETRON 4MG 2ML VIAL IV ONE ×2 (18:17→21:30)
[2024-04-10 18:19] LABS: BASO % 0.3 % (0.0-1.0); HEMATOCRIT 40.9 % (42.0-52.0); HEMOGLOBIN 14.5 g/dl (13.5-17.5); LYMPH # 0.5 10^3/uL (1.5-5.0); LYMPH % 6.2 % (24.0-44.0); MEAN CORPUSCULAR HEMOGLOBIN 30.9 pg (27.0-33.0); MEAN CORPUSCULAR HGB CONC 35.5 g/dl (32.0-36.5); MONO # 0.8 10^3/uL (0.0-0.8); MONO % 9.9 % (2.0-8.0); NEUTROPHILS # 6.4 10^3/uL (1.5-8.5); NEUTROPHILS % 83.2 % (36.0-66.0); PLATELET COUNT, AUTOMATED 211 10^3/uL (150-450); WHITE BLOOD COUNT 7.7 10^3/uL (4.0-10.0)
[2024-04-10] MEDS: NS 1,000 ML IV SCH (18:25)
[2024-04-10 18:46] LABS: INR 1.26; PROTHROMBIN TIME 15.4 SECONDS (12.5-14.5)
[2024-04-10 18:48] LABS: LIPASE 220 U/L (12-53)
[2024-04-10 18:50] LABS: ALBUMIN 3.4 G/DL (3.2-5.2); ALKALINE PHOSPHATASE 192 U/L (46-116); ALT/SGPT 110 U/L (7.0-40); AST/SGOT 131 U/L (<34); BILIRUBIN,DIRECT 0.6 MG/DL (<0.4); BILIRUBIN,TOTAL 1.1 MG/DL (0.3-1.2); BLOOD UREA NITROGEN 11 MG/DL (9-23); CALCIUM LEVEL 9.1 MG/DL (8.3-10.6); CARBON DIOXIDE LEVEL 21 MMOL/L (20-31); CHLORIDE LEVEL 97 MMOL/L (98-107); CREATININE FOR GFR 1.12 MG/DL (0.70-1.30); GLOMERULAR FILTRATION RATE > 60.0 (>42); GLUCOSE, FASTING 116 MG/DL (74-106); POTASSIUM SERUM 4.1 MMOL/L (3.5-5.1); SODIUM LEVEL 127 MMOL/L (136-145); TOTAL PROTEIN 6.9 G/DL (5.7-8.2)
[2024-04-10] MEDS ORDERED: ISOVUE-370 76% 100ML VIAL As Ordered ONE (18:57)
[2024-04-10 21:00] VITALS: TEMP 98.2
[2024-04-10] MEDS ORDERED: PERC5TAB12 PO (21:09)
[2024-04-10] MEDS ORDERED: ONDA-282 PO (21:09)
[2024-04-10 21:15] VITALS: BP 125/81; O2SAT 97
[2024-04-10] MEDS: OXYCODONE/APAP 5MG/325MG(HOME DOSE PACK) PO ONE (21:31)
== END 2024-04-10 22:14 | disposition home or self-care (01) ==
LOC: M ED 17:25
DX: K85.90 Acute pancreatitis without necrosis or infection, unspecified (principal); Q40.1 Congenital hiatus hernia; R00.0 Tachycardia, unspecified; I10 Essential (primary) hypertension; Z88.1 Allergy status to other antibiotic agents; Z91.040 Latex allergy status; Z91.011 Allergy to milk products; Z79.51 Long term (current) use of inhaled steroids; Z79.899 Other long term (current) drug therapy
CPT/HCPCS: 74177; 80048; 80076; 81001; 83605; 83690; 85025; 85610; 93005; 93041; 96374; 96375; 99284; J2405; J2470; Q9967

== ENCOUNTER → 2024-04-14 | Outpatient (REF) | payer MEDICARE, BC ==
[~2024-04-14] MED LIST changes: +ONDA-282 PO; +PERC5TAB12 PO
[2024-04-14 14:43] LABS: BASO # 0.1 10^3/uL (0.0-0.2); BASO % 0.9 % (0.0-1.0); EOS # 0.1 10^3/uL (0.0-0.5); EOS % 1.6 % (0.0-3.0); HEMATOCRIT 39.8 % (42.0-52.0); HEMOGLOBIN 13.6 g/dl (13.5-17.5); LYMPH # 1.5 10^3/uL (1.5-5.0); LYMPH % 26.3 % (24.0-44.0); MEAN CORPUSCULAR HEMOGLOBIN 30.9 pg (27.0-33.0); MEAN CORPUSCULAR HGB CONC 34.2 g/dl (32.0-36.5); MEAN CORPUSCULAR VOLUME 90.5 fl (80.0-96.0); MONO # 0.9 10^3/uL (0.0-0.8); NEUTROPHILS # 3.1 10^3/uL (1.5-8.5); NEUTROPHILS % 54.3 % (36.0-66.0); PLATELET COUNT, AUTOMATED 238 10^3/uL (150-450); WHITE BLOOD COUNT 5.7 10^3/uL (4.0-10.0)
[2024-04-14 15:14] LABS: LIPASE 95 U/L (12-53)
[2024-04-14 15:16] LABS: ALBUMIN 3.1 G/DL (3.2-5.2); ALKALINE PHOSPHATASE 122 U/L (46-116); ALT/SGPT 40 U/L (7.0-40); AST/SGOT 24 U/L (<34); BILIRUBIN,TOTAL 0.3 MG/DL (0.3-1.2); BLOOD UREA NITROGEN 12 MG/DL (9-23); CALCIUM LEVEL 9.2 MG/DL (8.3-10.6); CARBON DIOXIDE LEVEL 27 MMOL/L (20-31); CHLORIDE LEVEL 97 MMOL/L (98-107); CREATININE FOR GFR 1.16 MG/DL (0.70-1.30); GLOMERULAR FILTRATION RATE > 60.0 (>42); GLUCOSE, FASTING 89 MG/DL (74-106); POTASSIUM SERUM 4.8 MMOL/L (3.5-5.1); SODIUM LEVEL 131 MMOL/L (136-145); TOTAL PROTEIN 6.6 G/DL (5.7-8.2)
== END ==
LOC: M SFHCADAM 09:46
PROVIDERS: ATTEND Physician Assistant Medical
DX: K85.90 Acute pancreatitis without necrosis or infection, unspecified (principal); E87.1 Hypo-osmolality and hyponatremia

== ENCOUNTER 2024-04-18 06:14 | Inpatient (IN) | payer MEDICARE, BC ==
[~2024-04-18] VITALS: Ht 188 cm; Wt 110.9 kg
[2024-04-18 07:03] LABS: BASO # 0.1 10^3/uL (0.0-0.2); BASO % 0.3 % (0.0-1.0); EOS # 0.1 10^3/uL (0.0-0.5); EOS % 0.3 % (0.0-3.0); HEMOGLOBIN 14.1 g/dl (13.5-17.5); LYMPH # 1.4 10^3/uL (1.5-5.0); LYMPH % 6.8 % (24.0-44.0); MEAN CORPUSCULAR HEMOGLOBIN 30.7 pg (27.0-33.0); MEAN CORPUSCULAR HGB CONC 34.4 g/dl (32.0-36.5); MEAN CORPUSCULAR VOLUME 89.1 fl (80.0-96.0); MONO # 0.4 10^3/uL (0.0-0.8); MONO % 1.7 % (2.0-8.0); NEUTROPHILS # 18.5 10^3/uL (1.5-8.5); NEUTROPHILS % 89.8 % (36.0-66.0); PLATELET COUNT, AUTOMATED 372 10^3/uL (150-450); WHITE BLOOD COUNT 20.6 10^3/uL (4.0-10.0)
[2024-04-18 07:22] LABS: ALBUMIN 3.4 G/DL (3.2-5.2); ALKALINE PHOSPHATASE 240 U/L (46-116); ALT/SGPT 169 U/L (7.0-40); AST/SGOT 273 U/L (<34); BILIRUBIN,TOTAL 1.5 MG/DL (0.3-1.2); BLOOD UREA NITROGEN 13 MG/DL (9-23); CALCIUM LEVEL 9.7 MG/DL (8.3-10.6); CARBON DIOXIDE LEVEL 25 MMOL/L (20-31); CHLORIDE LEVEL 96 MMOL/L (98-107); CREATININE FOR GFR 1.03 MG/DL (0.70-1.30); GLOMERULAR FILTRATION RATE > 60.0 (>42); GLUCOSE, FASTING 125 MG/DL (74-106); SODIUM LEVEL 129 MMOL/L (136-145); TOTAL PROTEIN 7.1 G/DL (5.7-8.2)
[2024-04-18 07:36] LABS: LIPASE > 3500 U/L (12-53)
[2024-04-18] MEDS ORDERED: OMEP40CA4 PO (08:54)
[2024-04-18] MEDS ORDERED: METO1TAB87 PO (08:54)
[2024-04-18] MEDS ORDERED: CELE0.09 PO (08:55)
[2024-04-18] MEDS: ONDANSETRON 4MG 2ML VIAL IV ONE (09:11)
[2024-04-18] MEDS: NS 1,000 ML IV SCH (09:12)
[2024-04-18] MEDS: MORPHINE 4 MG/ML 1ML VIAL IV PRN (09:12)
[2024-04-18 09:24] LABS: ETHYL ALCOHOL (ETHANOL) 0.004 % (0.000-0.010)
[2024-04-18 09:45] LABS: INR 1.24; PROTHROMBIN TIME 15.2 SECONDS (12.5-14.5)
[2024-04-18] MEDS: NS 1,000 ML IV ONE (11:33)
[2024-04-18] MEDS: ACETAMINOPHEN TAB 650MG DOSE (2X325MG) PO ONE (11:33)
[2024-04-18] MEDS: CEFEPIME HCL 2 GM in D5W MINI-BAG PLUS 50 ML IV ONE (11:58)
[2024-04-18] MEDS: metroNIDAZOLE 500 MG in IV 1 EA IV ONE (12:31)
[2024-04-18] MEDS ORDERED: MOM 30ML SUSPENSION UDC PO PRN (13:20)
[2024-04-18] MEDS ORDERED: KETOROLAC 30 MG/ML 1ML VIAL IV PRN (13:30)
[2024-04-18] MEDS ORDERED: VITA500075 PO (14:25)
[2024-04-18] MEDS ORDERED: ONDA-282 PO (14:25)
[2024-04-18] MEDS: LR 1,000 ML IV SCH (14:33)
[2024-04-18] MEDS ORDERED: ALBU8.5H INH (14:49)
[2024-04-18] MEDS ORDERED: HOME MED LIST COMPLETE! XX SCH (14:50)
[2024-04-18 14:53] LABS: LDH LACTATE DEHYDROGENASE 344 U/L (120-246)
[2024-04-18 14:54] LABS: CHOLESTEROL LEVEL 135 MG/DL (<200); CHOLESTEROL RISK RATIO 5.13 (<5); HDL CHOLESTEROL 26.3 MG/DL (>40); LDL CHOLESTEROL 76.7 MG/DL (<100); NON-HDL-C 108.7 MG/DL; TRIGLYCERIDES LEVEL 160 MG/DL (<150)
[2024-04-18 15:06] LABS: PROCALCITONIN 0.21 ng/ml
[2024-04-18 15:15] VITALS: BP 114/61; TEMP 98.1; O2SAT 96
[2024-04-18 20:05] VITALS: BP 130/69; TEMP 97.5; O2SAT 97
[2024-04-18] MEDS: DOCUSATE SODIUM 100MG CAPSULE PO SCH (21:00)
[2024-04-18] MEDS: KETOROLAC 30 MG/ML 1ML VIAL IV PRN (21:14)
[2024-04-18] MEDS: HEPARIN SOD (PORCINE) 5000UNITS/ML 1ML VIAL/SYRINGE SC SCH (21:14)
[2024-04-19 04:46] VITALS: BP 127/68; TEMP 97.9; O2SAT 96
[2024-04-19] MEDS: ACETAMINOPHEN TAB 650MG DOSE (2X325MG) PO PRN (07:31)
[2024-04-19] MEDS: metroNIDAZOLE 500 MG in IV 1 EA IV SCH (07:31)
[2024-04-19 07:54] LABS: MEAN CORPUSCULAR HEMOGLOBIN 31.1 pg (27.0-33.0); MEAN CORPUSCULAR HGB CONC 34.2 g/dl (32.0-36.5); PLATELET COUNT, AUTOMATED 310 10^3/uL (150-450); RED BLOOD COUNT 3.54 10^6/uL (4.30-6.10); WHITE BLOOD COUNT 19.2 10^3/uL (4.0-10.0)
[2024-04-19 08:02] LABS: PROCALCITONIN 28.28 ng/ml
[2024-04-19 08:03] LABS: HEMATOCRIT 32.2 % (42.0-52.0)
[2024-04-19 08:04] LABS: ALBUMIN 2.5 G/DL (3.2-5.2); ALKALINE PHOSPHATASE 228 U/L (46-116); ALT/SGPT 139 U/L (7.0-40); AST/SGOT 122 U/L (<34); BILIRUBIN,DIRECT 1.7 MG/DL (<0.4); BILIRUBIN,TOTAL 2.4 MG/DL (0.3-1.2); BLOOD UREA NITROGEN 14 MG/DL (9-23); CALCIUM LEVEL 8.6 MG/DL (8.3-10.6); CARBON DIOXIDE LEVEL 26 MMOL/L (20-31); CHLORIDE LEVEL 100 MMOL/L (98-107); CREATININE FOR GFR 1.06 MG/DL (0.70-1.30); GLOMERULAR FILTRATION RATE > 60.0 (>42); GLUCOSE, FASTING 113 MG/DL (74-106); POTASSIUM SERUM 4.6 MMOL/L (3.5-5.1); SODIUM LEVEL 132 MMOL/L (136-145); TOTAL PROTEIN 5.6 G/DL (5.7-8.2)
[2024-04-19] MEDS: CEFEPIME HCL 2 GM in D5W MINI-BAG PLUS 50 ML IV SCH (08:49)
[2024-04-19 12:00] VITALS: BP 128/79; TEMP 97.7; O2SAT 97
[2024-04-19] MEDS ORDERED: ALBUTEROL 90 MCG/ACT 8GM HFA INHALER INH PRN (12:40)
[2024-04-19] MEDS: OMEPRAZOLE 20MG CAP PO SCH (13:30)
[2024-04-19] MEDS: FLUoxetine 20MG CAP PO SCH (13:30)
[2024-04-19] MEDS: METOPROLOL TART 25 MG TABLET PO SCH (13:31)
[2024-04-19 17:45] LABS: HEPATITIS B SURFACE ANTIGEN NEGATIVE (NEGATIVE)
[2024-04-19 18:07] LABS: HEPATITIS B CORE ANTIBODY IGM NEGATIVE (NEGATIVE); HEPATITIS C VIRUS ABY INDEX < 0.02 INDEX (<0.8)
[2024-04-19 20:17] VITALS: BP 137/80; TEMP 97.7; O2SAT 97
[2024-04-19] MEDS: RAMELTEON 8 MG TAB (ROZEREM) PO PRN (21:20)
[2024-04-20] VITALS (10 sets, daily range): BP systolic 121–171; BP diastolic 74–100; TEMP 97.5–97.9; O2SAT 94–98
[2024-04-20 06:09] LABS: HEMATOCRIT 33.9 % (42.0-52.0); HEMOGLOBIN 11.6 g/dl (13.5-17.5); MEAN CORPUSCULAR HEMOGLOBIN 30.7 pg (27.0-33.0); MEAN CORPUSCULAR HGB CONC 34.2 g/dl (32.0-36.5); MEAN CORPUSCULAR VOLUME 89.7 fl (80.0-96.0); PLATELET COUNT, AUTOMATED 328 10^3/uL (150-450); RED BLOOD COUNT 3.78 10^6/uL (4.30-6.10); WHITE BLOOD COUNT 12.8 10^3/uL (4.0-10.0)
[2024-04-20 06:42] LABS: ALBUMIN 2.5 G/DL (3.2-5.2); ALKALINE PHOSPHATASE 203 U/L (46-116); ALT/SGPT 96 U/L (7.0-40); AST/SGOT 59 U/L (<34); BILIRUBIN,DIRECT 0.5 MG/DL (<0.4); BILIRUBIN,TOTAL 0.8 MG/DL (0.3-1.2); BLOOD UREA NITROGEN 10 MG/DL (9-23); CALCIUM LEVEL 8.9 MG/DL (8.3-10.6); CARBON DIOXIDE LEVEL 25 MMOL/L (20-31); CHLORIDE LEVEL 100 MMOL/L (98-107); CREATININE FOR GFR 0.98 MG/DL (0.70-1.30); GLOMERULAR FILTRATION RATE > 60.0 (>42); GLUCOSE, FASTING 90 MG/DL (74-106); POTASSIUM SERUM 4.7 MMOL/L (3.5-5.1); SODIUM LEVEL 129 MMOL/L (136-145); TOTAL PROTEIN 5.8 G/DL (5.7-8.2)
[2024-04-20 07:55] LABS: PROCALCITONIN 12.47 ng/ml
[2024-04-20] MEDS: NS 1,000 ML IV SCH (11:59)
[2024-04-20] MEDS: ONDANSETRON 4MG 2ML VIAL IV PRN (14:51)
[2024-04-20] MEDS ORDERED: ISOVUE-300 61% 100ML VIAL As Ordered ONE (14:58)
[2024-04-20] MEDS ORDERED: oxyCODONE 5MG TAB PO PRN (17:50)
[2024-04-20] MEDS ORDERED: ONDANSETRON 4MG 2ML VIAL IV PRN (17:50)
[2024-04-20] MEDS ORDERED: fentaNYL 100 MCG/2 ML INJECTION IV PRN (17:50)
[2024-04-20] MEDS ORDERED: METOCLOPRAMIDE INJ 10MG/2ML VIAL IV PRN (17:50)
[2024-04-20] MEDS ORDERED: HYDROMORPHONE HCL 0.5 MG/ 0.5 ML SYRINGE IV PRN (17:50)
[2024-04-20] MEDS ORDERED: LR 1,000 ML IV SCH (17:50)
[2024-04-21 04:10] VITALS: BP 148/92; TEMP 97.7; O2SAT 97
[2024-04-21 07:54] LABS: HEMATOCRIT 36.6 % (42.0-52.0); HEMOGLOBIN 12.4 g/dl (13.5-17.5); MEAN CORPUSCULAR HEMOGLOBIN 30.4 pg (27.0-33.0); MEAN CORPUSCULAR HGB CONC 33.9 g/dl (32.0-36.5); MEAN CORPUSCULAR VOLUME 89.7 fl (80.0-96.0); PLATELET COUNT, AUTOMATED 378 10^3/uL (150-450); RED BLOOD COUNT 4.08 10^6/uL (4.30-6.10); WHITE BLOOD COUNT 11.2 10^3/uL (4.0-10.0)
[2024-04-21 08:07] LABS: ALBUMIN 2.6 G/DL (3.2-5.2); ALKALINE PHOSPHATASE 187 U/L (46-116); ALT/SGPT 69 U/L (7.0-40); AST/SGOT 30 U/L (<34); BILIRUBIN,DIRECT 0.4 MG/DL (<0.4); BILIRUBIN,TOTAL 0.7 MG/DL (0.3-1.2); BLOOD UREA NITROGEN 10 MG/DL (9-23); CALCIUM LEVEL 8.7 MG/DL (8.3-10.6); CARBON DIOXIDE LEVEL 21 MMOL/L (20-31); CHLORIDE LEVEL 101 MMOL/L (98-107); CREATININE FOR GFR 0.89 MG/DL (0.70-1.30); GLOMERULAR FILTRATION RATE > 60.0 (>42); GLUCOSE, FASTING 108 MG/DL (74-106); POTASSIUM SERUM 4.7 MMOL/L (3.5-5.1); SODIUM LEVEL 131 MMOL/L (136-145); TOTAL PROTEIN 6.2 G/DL (5.7-8.2)
[2024-04-21 08:18] VITALS: BP 148/89; TEMP 97.5; O2SAT 97
[2024-04-21] MEDS ORDERED: LEVO750T14 PO (11:24)
[2024-04-21] MEDS ORDERED: METR-265 PO (11:24)
[2024-04-21] MEDS ORDERED: ONDA-83 PO (11:24)
[2024-04-21 12:22] VITALS: BP 162/90; TEMP 97.9; O2SAT 99
== END 2024-04-21 12:55 | disposition home or self-care (01) | DRG 871 ==
LOC: M ED 06:14 → M ED INP 13:17 → M MS5PR 15:05
PROVIDERS: ADMIT Student in an Organized Health Care Education/Training Program; ATTEND Internal Medicine
PROC: 0FC98ZZ Extirpation of Matter from Common Bile Duct, Via Natural or Artificial Opening Endoscopic (ICD-10-PCS; principal; 2024-04-20 10:15)
DX: A41.59 Other Gram-negative sepsis (principal); K85.10 Biliary acute pancreatitis without necrosis or infection; E87.1 Hypo-osmolality and hyponatremia; K80.30 Calculus of bile duct with cholangitis, unspecified, without obstruction; F32.A Depression, unspecified; I10 Essential (primary) hypertension; E78.5 Hyperlipidemia, unspecified; K21.9 Gastro-esophageal reflux disease without esophagitis; M19.90 Unspecified osteoarthritis, unspecified site; E73.9 Lactose intolerance, unspecified; Z91.040 Latex allergy status; K44.9 Diaphragmatic hernia without obstruction or gangrene; R65.10 Systemic inflammatory response syndrome (SIRS) of non-infectious origin without acute organ dysfunction; Z90.49 Acquired absence of other specified parts of digestive tract; Z96.642 Presence of left artificial hip joint; Z79.899 Other long term (current) drug therapy; Z88.0 Allergy status to penicillin

== ENCOUNTER → 2024-05-02 | Outpatient (REF) | payer MEDICARE, BC ==
[~2024-05-02] MED LIST changes: +ALBU8.5H INH; +CELE0.09 PO; +LEVO750T14 PO; +METO1TAB87 PO; +METR-265 PO; +OMEP40CA4 PO; +ONDA-83 PO; +VITA500075 PO
[2024-05-02 18:02] LABS: BASO # 0.1 10^3/uL (0.0-0.2); BASO % 0.8 % (0.0-1.0); EOS # 0.1 10^3/uL (0.0-0.5); EOS % 1.3 % (0.0-3.0); HEMATOCRIT 40.3 % (42.0-52.0); HEMOGLOBIN 13.7 g/dl (13.5-17.5); LYMPH # 1.8 10^3/uL (1.5-5.0); LYMPH % 28.7 % (24.0-44.0); MEAN CORPUSCULAR HEMOGLOBIN 30.9 pg (27.0-33.0); MONO # 0.8 10^3/uL (0.0-0.8); MONO % 13.8 % (2.0-8.0); NEUTROPHILS # 3.4 10^3/uL (1.5-8.5); NEUTROPHILS % 54.9 % (36.0-66.0); PLATELET COUNT, AUTOMATED 299 10^3/uL (150-450); RED BLOOD COUNT 4.43 10^6/uL (4.30-6.10); WHITE BLOOD COUNT 6.1 10^3/uL (4.0-10.0)
[2024-05-02 18:32] LABS: LIPASE 87 U/L (12-53)
[2024-05-02 18:34] LABS: ALBUMIN 3.4 G/DL (3.2-5.2); ALKALINE PHOSPHATASE 98 U/L (46-116); ALT/SGPT 25 U/L (7.0-40); AST/SGOT 20 U/L (<34); BILIRUBIN,TOTAL 0.5 MG/DL (0.3-1.2); BLOOD UREA NITROGEN 12 MG/DL (9-23); CALCIUM LEVEL 9.3 MG/DL (8.3-10.6); CARBON DIOXIDE LEVEL 28 MMOL/L (20-31); CHLORIDE LEVEL 98 MMOL/L (98-107); CREATININE FOR GFR 1.11 MG/DL (0.70-1.30); GLOMERULAR FILTRATION RATE > 60.0 (>42); GLUCOSE, FASTING 69 MG/DL (74-106); POTASSIUM SERUM 4.6 MMOL/L (3.5-5.1); SODIUM LEVEL 129 MMOL/L (136-145); TOTAL PROTEIN 6.8 G/DL (5.7-8.2)
== END ==
LOC: M SFHCADAM 14:33
PROVIDERS: ATTEND Family Medicine
DX: K83.09 Other cholangitis (principal); Z79.899 Other long term (current) drug therapy

== ENCOUNTER 2024-05-12 04:06 | Emergency (ER) | payer MEDICARE, BC ==
[~2024-05-12] VITALS: Ht 193 cm; Wt 105.9 kg
[2024-05-12 04:48] LABS: BASO # 0.1 10^3/uL (0.0-0.2); BASO % 0.9 % (0.0-1.0); EOS # 0.2 10^3/uL (0.0-0.5); EOS % 2.1 % (0.0-3.0); HEMATOCRIT 42.8 % (42.0-52.0); HEMOGLOBIN 14.6 g/dl (13.5-17.5); LYMPH # 2.4 10^3/uL (1.5-5.0); LYMPH % 34.8 % (24.0-44.0); MEAN CORPUSCULAR HEMOGLOBIN 30.5 pg (27.0-33.0); MEAN CORPUSCULAR HGB CONC 34.1 g/dl (32.0-36.5); MEAN CORPUSCULAR VOLUME 89.5 fl (80.0-96.0); MONO # 0.8 10^3/uL (0.0-0.8); MONO % 11.4 % (2.0-8.0); NEUTROPHILS # 3.5 10^3/uL (1.5-8.5); NEUTROPHILS % 50.2 % (36.0-66.0); PLATELET COUNT, AUTOMATED 225 10^3/uL (150-450); RED BLOOD COUNT 4.78 10^6/uL (4.30-6.10)
[2024-05-12] MEDS ORDERED: ONDANSETRON 4MG 2ML VIAL As Ordered ONE (04:49)
[2024-05-12] MEDS ORDERED: KETOROLAC 30 MG/ML 1ML VIAL As Ordered ONE (04:50)
[2024-05-12 05:06] LABS: LIPASE 78 U/L (12-53)
[2024-05-12] MEDS: ONDANSETRON 4MG 2ML VIAL IV ONE (05:07)
[2024-05-12] MEDS: NS 1,000 ML IV ONE (05:07)
[2024-05-12] MEDS: KETOROLAC 30 MG/ML 1ML VIAL IV ONE (05:07)
[2024-05-12 05:09] LABS: ALBUMIN 3.6 G/DL (3.2-5.2); ALKALINE PHOSPHATASE 107 U/L (46-116); ALT/SGPT 22 U/L (7.0-40); AST/SGOT 19 U/L (<34); BILIRUBIN,DIRECT 0.2 MG/DL (<0.4); BILIRUBIN,TOTAL 0.4 MG/DL (0.3-1.2); BLOOD UREA NITROGEN 12 MG/DL (9-23); CALCIUM LEVEL 9.3 MG/DL (8.3-10.6); CARBON DIOXIDE LEVEL 28 MMOL/L (20-31); CHLORIDE LEVEL 99 MMOL/L (98-107); GLOMERULAR FILTRATION RATE > 60.0 (>42); GLUCOSE, FASTING 112 MG/DL (74-106); POTASSIUM SERUM 4.4 MMOL/L (3.5-5.1); SODIUM LEVEL 133 MMOL/L (136-145); TOTAL PROTEIN 7.4 G/DL (5.7-8.2)
[2024-05-12] MEDS ORDERED: ISOVUE-370 76% 100ML VIAL As Ordered ONE (05:17)
[2024-05-12] MEDS: HYOSCYAMINE SULFATE 0.125 MG SUBL TABLET PO ONE (06:46)
[2024-05-12 09:14] VITALS: BP 123/78; TEMP 97.5; O2SAT 97
[2024-05-12] MEDS ORDERED: HYOS1TAB PO (09:25)
== END 2024-05-12 09:25 | disposition home or self-care (01) ==
LOC: M ED 04:06
DX: K80.66 Calculus of gallbladder and bile duct with acute and chronic cholecystitis without obstruction (principal); K21.9 Gastro-esophageal reflux disease without esophagitis; I10 Essential (primary) hypertension; E78.5 Hyperlipidemia, unspecified; Z88.1 Allergy status to other antibiotic agents; Z91.011 Allergy to milk products; Z91.040 Latex allergy status; Z79.51 Long term (current) use of inhaled steroids; Z79.899 Other long term (current) drug therapy
CPT/HCPCS: 36415; 74177; 76705; 80048; 80076; 83690; 85025; 96374; 99284; J1885; J2405; Q9967

== ENCOUNTER 2024-05-17 01:06 | Inpatient (IN) | payer MEDICARE, BC ==
[~2024-05-17] VITALS: Ht 185.4 cm; Wt 107.7 kg
[~2024-05-17 01:06] MED LIST changes: +HYOS1TAB PO
[2024-05-17 02:56] LABS: BASO % 0.4 % (0.0-1.0); EOS # 0.1 10^3/uL (0.0-0.5); EOS % 1.5 % (0.0-3.0); HEMATOCRIT 40.5 % (42.0-52.0); LYMPH # 1.6 10^3/uL (1.5-5.0); MEAN CORPUSCULAR HEMOGLOBIN 30.4 pg (27.0-33.0); MEAN CORPUSCULAR HGB CONC 34.6 g/dl (32.0-36.5); MONO # 0.9 10^3/uL (0.0-0.8); MONO % 9.8 % (2.0-8.0); NEUTROPHILS # 6.8 10^3/uL (1.5-8.5); PLATELET COUNT, AUTOMATED 196 10^3/uL (150-450); WHITE BLOOD COUNT 9.6 10^3/uL (4.0-10.0)
[2024-05-17 03:19] LABS: LIPASE 38 U/L (12-53)
[2024-05-17 03:21] LABS: ALBUMIN 3.7 G/DL (3.2-5.2); ALKALINE PHOSPHATASE 116 U/L (46-116); ALT/SGPT 20 U/L (7.0-40); AST/SGOT 23 U/L (<34); BILIRUBIN,DIRECT 0.3 MG/DL (<0.4); BILIRUBIN,TOTAL 0.6 MG/DL (0.3-1.2); BLOOD UREA NITROGEN 9 MG/DL (9-23); CALCIUM LEVEL 9.4 MG/DL (8.3-10.6); CARBON DIOXIDE LEVEL 28 MMOL/L (20-31); CHLORIDE LEVEL 96 MMOL/L (98-107); CREATININE FOR GFR 0.97 MG/DL (0.70-1.30); GLOMERULAR FILTRATION RATE > 60.0 (>42); GLUCOSE, FASTING 95 MG/DL (74-106); POTASSIUM SERUM 4.3 MMOL/L (3.5-5.1); SODIUM LEVEL 128 MMOL/L (136-145); TOTAL PROTEIN 7.2 G/DL (5.7-8.2)
[2024-05-17] MEDS ORDERED: HOME MED LIST COMPLETE! XX SCH (08:00)
[2024-05-17 11:15] LABS: OSMOLALITY SERUM 272 MOSM/KG (280-301)
[2024-05-17] MEDS: cefTRIAXone SOD 1 GM in D5W MINI-BAG PLUS 50 ML IV SCH (12:48)
[2024-05-17] MEDS: ACETAMINOPHEN TAB 650MG DOSE (2X325MG) PO PRN (13:04)
[2024-05-17] MEDS: metroNIDAZOLE (FLAGYL) 500MG TABLET PO SCH (13:25)
[2024-05-17] MEDS ORDERED: ALBUTEROL 90 MCG/ACT 8GM HFA INHALER INH PRN (14:40)
[2024-05-17] MEDS ORDERED: propofoL 200 MG/20 ML VIAL As Ordered ONE (16:37)
[2024-05-17] MEDS ORDERED: ROCURONIUM BROMIDE 50MG/5ML VIAL As Ordered ONE (16:37)
[2024-05-17] MEDS ORDERED: ONDANSETRON 4MG 2ML VIAL As Ordered ONE (16:37)
[2024-05-17] MEDS ORDERED: LIDOCAINE 2% 100MG/5ML SDV (FOR ANES.) As Ordered ONE (16:37)
[2024-05-17] MEDS ORDERED: fentaNYL 100 MCG/2 ML INJECTION As Ordered ONE (16:37)
[2024-05-17] MEDS ORDERED: MIDAZOLAM INJ 2MG/2ML VIAL As Ordered ONE (16:37)
[2024-05-17] MEDS: INDOCYANINE GREEN 25MG VIAL (IC-GREEN) As Ordered ONE (17:15)
[2024-05-17] MEDS: LIDOCAINE 1% SDV 30ML VIAL As Ordered ONE (17:47)
[2024-05-17] MEDS ORDERED: dexmedeTOMIDine (4MCG/ML)200MCG/50ML BTL (PRECEDEX) As Ordered ONE (18:44)
[2024-05-17] MEDS ORDERED: SUGAMMADEX SODIUM 500 MG/5 ML VIAL (BRIDION) As Ordered ONE (20:06)
[2024-05-17] MEDS ORDERED: KETOROLAC 60MG 2ML VIAL As Ordered ONE (20:07)
[2024-05-17 21:34] VITALS: BP 132/95; TEMP 97.5; O2SAT 97
[2024-05-17 21:45] VITALS: BP 134/93; TEMP 97.2; O2SAT 96
[2024-05-17] MEDS: ONDANSETRON 4MG 2ML VIAL IV PRN (22:03)
[2024-05-17] MEDS: MORPHINE 2 MG/ML 1ML VIAL IV PRN (22:04)
[2024-05-17 22:15] VITALS: BP 136/93; TEMP 97.5; O2SAT 94
[2024-05-17] MEDS: NS 1,000 ML IV SCH (22:26)
[2024-05-17 23:10] VITALS: BP 136/93; TEMP 97.2; O2SAT 95
[2024-05-18] VITALS (9 sets, daily range): BP systolic 116–136; BP diastolic 73–95; TEMP 97.2–97.7; O2SAT 94–96
[2024-05-18] MEDS: SIMETHICONE 80MG CHEW TAB PO PRN (00:08)
[2024-05-18 06:06] LABS: BASO % 0.1 % (0.0-1.0); HEMATOCRIT 37.8 % (42.0-52.0); HEMOGLOBIN 13.3 g/dl (13.5-17.5); LYMPH # 0.8 10^3/uL (1.5-5.0); LYMPH % 8.9 % (24.0-44.0); MEAN CORPUSCULAR HEMOGLOBIN 30.9 pg (27.0-33.0); MEAN CORPUSCULAR HGB CONC 35.2 g/dl (32.0-36.5); MEAN CORPUSCULAR VOLUME 87.9 fl (80.0-96.0); MONO # 0.5 10^3/uL (0.0-0.8); MONO % 5.6 % (2.0-8.0); NEUTROPHILS # 7.4 10^3/uL (1.5-8.5); NEUTROPHILS % 85.1 % (36.0-66.0); PLATELET COUNT, AUTOMATED 194 10^3/uL (150-450); WHITE BLOOD COUNT 8.7 10^3/uL (4.0-10.0)
[2024-05-18 06:20] LABS: CREATININE,RANDOM URINE 197.8 MG/DL
[2024-05-18 06:25] LABS: ALBUMIN 2.9 G/DL (3.2-5.2); ALKALINE PHOSPHATASE 104 U/L (46-116); ALT/SGPT 26 U/L (7.0-40); AST/SGOT 31 U/L (<34); BILIRUBIN,TOTAL 0.7 MG/DL (0.3-1.2); BLOOD UREA NITROGEN 11 MG/DL (9-23); CALCIUM LEVEL 8.8 MG/DL (8.3-10.6); CARBON DIOXIDE LEVEL 25 MMOL/L (20-31); CHLORIDE LEVEL 98 MMOL/L (98-107); CREATININE FOR GFR 1.02 MG/DL (0.70-1.30); GLOMERULAR FILTRATION RATE > 60.0 (>42); GLUCOSE, FASTING 124 MG/DL (74-106); MAGNESIUM LEVEL 1.7 MG/DL (1.8-2.4); POTASSIUM SERUM 5.3 MMOL/L (3.5-5.1); SODIUM LEVEL 129 MMOL/L (136-145); TOTAL PROTEIN 6.5 G/DL (5.7-8.2)
[2024-05-18] MEDS: MAG SULF 1GM/100ML (MAG RUN) 1 GM in IV 1 EA IV SCH (08:09)
[2024-05-18] MEDS: PATIROMER SORBITEX CALCIUM 8.4 GM POWDER PACKET (VELTASSA) PO STA (08:18)
[2024-05-18] MEDS: METOPROLOL TART 25 MG TABLET PO SCH (11:37)
[2024-05-18] MEDS: PANTOPRAZOLE 40MG TAB (PROTONIX) PO SCH (11:38)
[2024-05-18] MEDS: SIMVASTATIN 20 MG TAB PO SCH (11:38)
[2024-05-18] MEDS: FLUoxetine 20MG CAP PO SCH (11:38)
[2024-05-18] MEDS: CelecoXIB (CeleBREX) 100 MG CAP PO SCH (17:32)
[2024-05-18 17:33] LABS: BLOOD UREA NITROGEN 12 MG/DL (9-23); CALCIUM LEVEL 8.7 MG/DL (8.3-10.6); CARBON DIOXIDE LEVEL 28 MMOL/L (20-31); CHLORIDE LEVEL 98 MMOL/L (98-107); CREATININE FOR GFR 0.96 MG/DL (0.70-1.30); GLOMERULAR FILTRATION RATE > 60.0 (>42); GLUCOSE, FASTING 103 MG/DL (74-106); POTASSIUM SERUM 4.7 MMOL/L (3.5-5.1); SODIUM LEVEL 128 MMOL/L (136-145)
[2024-05-18] MEDS: ENOXAPARIN 40MG/0.4ML SYRINGE (J1650 PER 10MG) SC SCH (21:47)
[2024-05-18] MEDS: SODIUM CHLORIDE 1 GM TAB PO SCH (21:47)
[2024-05-19] VITALS: BP 126/81; TEMP 97; O2SAT 97
[2024-05-19 04:00] VITALS: BP 128/83; TEMP 97.2; O2SAT 98
[2024-05-19 05:55] LABS: BASO % 0.3 % (0.0-1.0); EOS % 0.5 % (0.0-3.0); HEMATOCRIT 36.8 % (42.0-52.0); HEMOGLOBIN 12.7 g/dl (13.5-17.5); LYMPH # 2.1 10^3/uL (1.5-5.0); LYMPH % 26.3 % (24.0-44.0); MEAN CORPUSCULAR HEMOGLOBIN 30.7 pg (27.0-33.0); MEAN CORPUSCULAR HGB CONC 34.5 g/dl (32.0-36.5); MEAN CORPUSCULAR VOLUME 88.9 fl (80.0-96.0); MONO # 0.9 10^3/uL (0.0-0.8); NEUTROPHILS # 4.9 10^3/uL (1.5-8.5); NEUTROPHILS % 61.5 % (36.0-66.0); PLATELET COUNT, AUTOMATED 201 10^3/uL (150-450); RED BLOOD COUNT 4.14 10^6/uL (4.30-6.10)
[2024-05-19 06:35] LABS: ALBUMIN 2.9 G/DL (3.2-5.2); ALKALINE PHOSPHATASE 91 U/L (46-116); ALT/SGPT 22 U/L (7.0-40); AST/SGOT 22 U/L (<34); BILIRUBIN,TOTAL 0.3 MG/DL (0.3-1.2); BLOOD UREA NITROGEN 13 MG/DL (9-23); CALCIUM LEVEL 8.8 MG/DL (8.3-10.6); CARBON DIOXIDE LEVEL 25 MMOL/L (20-31); CHLORIDE LEVEL 101 MMOL/L (98-107); GLOMERULAR FILTRATION RATE > 60.0 (>42); GLUCOSE, FASTING 94 MG/DL (74-106); MAGNESIUM LEVEL 1.7 MG/DL (1.8-2.4); POTASSIUM SERUM 4.5 MMOL/L (3.5-5.1); SODIUM LEVEL 132 MMOL/L (136-145); TOTAL PROTEIN 6.4 G/DL (5.7-8.2)
[2024-05-19 08:00] VITALS: BP 140/90; TEMP 97; O2SAT 98
[2024-05-19 08:17] VITALS: BP 138/89
[2024-05-19] MEDS ORDERED: LEVO1TAB40 PO (11:21)
[2024-05-19] MEDS ORDERED: METR-265 PO (11:21)
[2024-05-19] MEDS ORDERED: MAGN400T35 PO (11:25)
[2024-05-19 12:00] VITALS: BP 143/81; TEMP 96.8; O2SAT 100
== END 2024-05-19 12:44 | disposition home or self-care (01) | DRG 418 ==
LOC: M ED 01:06 → M ED INP 10:12 → M MSPAV 21:19
PROVIDERS: ADMIT Internal Medicine; ATTEND Internal Medicine
PROC: 8E0W4CZ Robotic Assisted Procedure of Trunk Region, Percutaneous Endoscopic Approach (ICD-10-PCS; 2024-05-17)
PROC: BF50200 Other Imaging of Bile Ducts using Fluorescing Agent, Indocyanine Green Dye, Intraoperative (ICD-10-PCS; 2024-05-17)
PROC: 0FT44ZZ Resection of Gallbladder, Percutaneous Endoscopic Approach (ICD-10-PCS; principal; 2024-05-17 15:05)
DX: K81.2 Acute cholecystitis with chronic cholecystitis (principal); E87.1 Hypo-osmolality and hyponatremia; K82.1 Hydrops of gallbladder; E78.5 Hyperlipidemia, unspecified; I10 Essential (primary) hypertension; K21.9 Gastro-esophageal reflux disease without esophagitis; E87.5 Hyperkalemia; M19.90 Unspecified osteoarthritis, unspecified site; E83.42 Hypomagnesemia; F32.A Depression, unspecified; J45.909 Unspecified asthma, uncomplicated; E73.9 Lactose intolerance, unspecified; Z90.49 Acquired absence of other specified parts of digestive tract; Z79.899 Other long term (current) drug therapy; Z88.0 Allergy status to penicillin; Z91.040 Latex allergy status; Z96.642 Presence of left artificial hip joint

== ENCOUNTER → 2024-05-25 | Outpatient (REF) | payer MEDICARE, BC ==
[~2024-05-25] MED LIST changes: +LEVO1TAB40 PO; +MAGN400T35 PO
[2024-05-25 18:36] LABS: BLOOD UREA NITROGEN 9 MG/DL (9-23); CALCIUM LEVEL 9.5 MG/DL (8.3-10.6); CARBON DIOXIDE LEVEL 27 MMOL/L (20-31); CHLORIDE LEVEL 99 MMOL/L (98-107); CREATININE FOR GFR 1.08 MG/DL (0.70-1.30); GLOMERULAR FILTRATION RATE > 60.0 (>42); GLUCOSE, FASTING 95 MG/DL (74-106); POTASSIUM SERUM 4.9 MMOL/L (3.5-5.1); SODIUM LEVEL 132 MMOL/L (136-145)
== END ==
LOC: M SFHCADAM 14:57
PROVIDERS: ATTEND Family Medicine
DX: E87.1 Hypo-osmolality and hyponatremia (principal)

== ENCOUNTER → 2025-02-08 | Outpatient (REF) | payer MEDICARE, BC ==
[~2025-02-08] MED LIST changes: -HYOS0.1259 PO; +HYOS125E2 PO; -LEVO750T14 PO; +LEVO75TAB PO
[2025-02-08 14:16] LABS: BASO # 0.1 10^3/uL (0.0-0.2); EOS # 0.2 10^3/uL (0.0-0.5); EOS % 2.5 % (0.0-3.0); HEMATOCRIT 43.7 % (42.0-52.0); HEMOGLOBIN 14.6 g/dl (13.5-17.5); LYMPH % 33.1 % (24.0-44.0); MEAN CORPUSCULAR HEMOGLOBIN 31.3 pg (27.0-33.0); MEAN CORPUSCULAR HGB CONC 33.4 g/dl (32.0-36.5); MEAN CORPUSCULAR VOLUME 93.6 fl (80.0-96.0); MONO # 0.7 10^3/uL (0.0-0.8); MONO % 11.5 % (2.0-8.0); NEUTROPHILS # 3.2 10^3/uL (1.5-8.5); NEUTROPHILS % 51.7 % (36.0-66.0); PLATELET COUNT, AUTOMATED 237 10^3/uL (150-450); RED BLOOD COUNT 4.67 10^6/uL (4.30-6.10); WHITE BLOOD COUNT 6.1 10^3/uL (4.0-10.0)
[2025-02-08 14:21] LABS: ERYTHROCYTE SEDIMENTATION RATE 21 mm/hr (0-20)
[2025-02-08 14:48] LABS: URIC ACID 5.1 MG/DL (3.7-9.2)
[2025-02-08 15:45] LABS: C REACTIVE PROTEIN QUANTITATIV < 0.50 MG/DL (<1.0)
[2025-02-09 12:50] LABS: RHEUMATOID FACTOR QUANT < 3.5 IU/ML (<14)
== END ==
LOC: M SFHCADAM 07:31
PROVIDERS: ATTEND Family Medicine
DX: M25.50 Pain in unspecified joint (principal)

== ENCOUNTER → 2025-02-16 | Outpatient (REF) | payer MEDICARE, BC ==
[2025-02-16 18:54] LABS: MAGNESIUM LEVEL 1.9 MG/DL (1.8-2.4); PERCENT SATURATION 31.8 % (19.7-50.0); PHOSPHORUS LEVEL 3.9 MG/DL (2.4-5.1)
[2025-02-16 18:57] LABS: TOTAL 25(OH) VITAMIN D 54.9 NG/ML (20.0-100.0)
== END ==
LOC: M SFHCRHEU 11:16
PROVIDERS: ATTEND Internal Medicine
DX: M79.10 Myalgia, unspecified site (principal); D50.9 Iron deficiency anemia, unspecified

== ENCOUNTER → 2025-02-21 | Outpatient (CLI) | payer MEDICARE, BC | LOC: M PLAIMG 10:14 | PROVIDERS: ATTEND Internal Medicine | DX: M24.812 Other specific joint derangements of left shoulder, not elsewhere classified (principal) ==